=== PATIENT | female | born 1950 | race Caucasian/White ===

== ENCOUNTER → 2018-11-09 | Outpatient (CLI) | payer OTHER | LOC: BC 12:47 | DX: Z12.31 Encounter for screening mammogram for malignant neoplasm of breast (principal) ==

== ENCOUNTER → 2018-11-10 | Outpatient (CLI) | payer OTHER | LOC: CAT 11:35 | DX: Z13.6 Encounter for screening for cardiovascular disorders (principal); E78.00 Pure hypercholesterolemia, unspecified; I25.10 Atherosclerotic heart disease of native coronary artery without angina pectoris ==

== ENCOUNTER → 2019-03-12 | Outpatient (CLI) | payer OTHER | LOC: NUC 09:47 | DX: Z78.0 Asymptomatic menopausal state (principal); Z82.62 Family history of osteoporosis ==

== ENCOUNTER → 2020-02-18 | Outpatient (CLI) | payer OTHER | LOC: BC 10:32 | PROVIDERS: ATTEND Family Medicine | DX: Z12.31 Encounter for screening mammogram for malignant neoplasm of breast (principal) ==

== ENCOUNTER → 2020-04-10 | Outpatient (CLI) | payer OTHER ==
[~2020-04-10] MED LIST: METFORMIN HCL500 M3 PO; NORVASC 2.5 MG2.5 M1 PO; TOPROL XL50 MG; ZOFRAN ODT4 MG PO
== END ==
LOC: LAB 13:15
PROVIDERS: ATTEND Nurse Practitioner
DX: U07.1 COVID-19 (principal)

== ENCOUNTER 2020-04-11 10:46 | Emergency (ER) | payer OTHER ==
[~2020-04-11] VITALS: Ht 162.6 cm; Wt 72.6 kg
[2020-04-11] MEDS ORDERED: TOPROL XL50 MG (13:03)
[2020-04-11] MEDS ORDERED: NORVASC 2.5 MG2.5 M1 PO (13:03)
[2020-04-11 13:33] LABS: CALCIUM 8.5 mg/dL (8.5-10.1); POTASSIUM 4.2 mmol/L (3.5-5.1)
[2020-04-11 13:39] LABS: ALBUMIN 3.2 g/dL (3.4-5.0); TOTAL BILIRUBIN 0.3 mg/dL (0.2-1.0); TOTAL PROTEIN 6.9 g/dL (6.4-8.2)
[2020-04-11 13:44] LABS: ABSOLUTE NEUTROPHILS 3.3 thou/uL (1.4-8.2); BASOPHILS 0.4 % (0.0-2.0); EOSINOPHILS 0.1 % (0.0-3.0); HEMATOCRIT 39.8 % (37.0-47.0); HEMOGLOBIN 13.8 gm/dL (12.0-15.0); LYMPHOCYTES 12.1 % (24.0-44.0); MCH 32.8 pg (26.0-34.0); MCHC 34.6 g/dL (28.0-37.0); MCV 94.9 fL (80.0-100.0); MONOCYTES 4.7 % (1.0-8.0); PLATELET COUNT 147 thou/uL (150-400); POLYS 82.7 % (36.0-66.0); RBC 4.19 mil/uL (4.20-5.00); RDW 12.7 % (10.5-14.5)
[2020-04-11] MEDS ORDERED: METFORMIN HCL500 M3 PO (13:45)
[2020-04-11] MEDS ORDERED: ZOFRAN ODT4 MG PO (14:37)
[2020-04-11 15:00] VITALS: BP 112/60
--- NOTE | 2020-04-14 07:34 | EKG ---
[place] [address] [facility] [place] [address] ELECTROCARDIOGRAM REPORT Name: HARLEY BARRERA Room #: DEP Emely#: [id number] Admission: 04/11/20 Attend Phys: Discharge: 04/11/20 Date of : 48 Report #: [id number] [facility] ED Test Date: 2020-04-11 Test Time: 12:49:39 Pat Name: HARLEY BARRERA Department: Room: Gender: F Collections Specialist: terrance : 1950 Requested By: Pasquale Smart Order Number: [id number] MD: Ravinder Sands Measurements Intervals [place] Rate: 90 P: 40 CO: 163 QRS: 9 QRSD: 79 T: 33 QT: 354 QTc: 433 Interpretive Statements Sinus rhythm Borderline T abnormalities, anterior leads No previous ECG available for comparison Electronically Signed On 04-14-2020 7:34:45 LABORER PRESTRESSED CONCRETE by Ravinder Sands [email or web address] <ELECTRONICALLY SIGNED> By: Ravinder Sands MD, [facility] 04/14/20 0734 1249 1249 Ravinder Sands MD, FACC /EPI
== END 2020-04-11 15:00 | disposition home or self-care (01) ==
LOC: ER 10:46
PROVIDERS: Emergency Medicine
DX: R11.2 Nausea with vomiting, unspecified (principal); R05 Cough; Z79.899 Other long term (current) drug therapy

== ENCOUNTER 2020-04-12 08:02 | Inpatient (IN) | payer OTHER ==
[~2020-04-12] VITALS: Ht 162.6 cm; Wt 74.7 kg
[2020-04-12 08:15] VITALS: BP 134/74
[2020-04-12 09:38] LABS: ABSOLUTE NEUTROPHILS 3.4 thou/uL (1.4-8.2); BASOPHILS 0.3 % (0.0-2.0); HEMOGLOBIN 13.3 gm/dL (12.0-15.0); LYMPHOCYTES 9.3 % (24.0-44.0); MCH 32.7 pg (26.0-34.0); MCHC 34.2 g/dL (28.0-37.0); MCV 95.7 fL (80.0-100.0); MONOCYTES 6.4 % (1.0-8.0); PLATELET COUNT 139 thou/uL (150-400); RBC 4.07 mil/uL (4.20-5.00); RDW 12.6 % (10.5-14.5); WBC 4.1 thou/uL (4.0-11.0)
[2020-04-12 09:41] LABS: ANION GAP 11 mmol/L (7-16); BUN 25 mg/dL (7-18); CALCIUM 8.5 mg/dL (8.5-10.1); CHLORIDE 93 mmol/L (98-107); CO2 25 mmol/L (21-32); CREATININE 1.4 mg/dL (0.6-1.0); GLUCOSE 362 mg/dL (74-106); POTASSIUM 4.1 mmol/L (3.5-5.1); SODIUM 129 mmol/L (136-145)
[2020-04-12 09:50] LABS: SGOT 48 U/L (15-37); SGPT 43 U/L (30-65); TOTAL BILIRUBIN 0.5 mg/dL (0.2-1.0); TOTAL PROTEIN 7.4 g/dL (6.4-8.2); TROPONIN-I <0.06 ng/mL (<0.06)
[2020-04-12 10:45] LABS: URINE BILIRUBIN NEGATIVE (Negative); URINE BLOOD TRACE (Negative); URINE CLARITY CLEAR; URINE COLOR YELLOW; URINE GLUCOSE-RANDOM* 3+ (Negative); URINE KETONES 2+ (Negative); URINE LEUKOCYTES-REFLEX NEGATIVE (Negative); URINE NITRITE-REFLEX NEGATIVE (Negative); URINE PROTEIN (DIPSTICK) 1+ (Negative); URINE SPECIFIC GRAVITY 1.025 (1.005-1.035); URINE UROBILINOGEN 0.2 E.U./dl (0.2-1.0)
[2020-04-12 11:09] LABS: MUCUS 0-3 Light strn/LPF (None Seen); SQUAMOUS 0-3 Few /LPF (0-3)
[2020-04-12 11:10] LABS: BACTERIA-REFLEX None Seen /HPF (None Seen); URINE WBC-REFLEX 0-5 Rare /HPF (0-5)
[2020-04-12 11:11] LABS: URINE RBC 0-2 Rare /HPF (0-2)
[2020-04-12 11:13] LABS: CASTS None Seen /LPF (None Seen); CRYSTALS None Seen /LPF (None Seen); WBC CLUMPS Occasional (None Seen)
[2020-04-12 12:21] VITALS: BP 134/74
[2020-04-12 12:37] VITALS: BP 134/74
[2020-04-12 13:04] VITALS: BP 135/70
[2020-04-12 16:17] VITALS: BP 133/74
--- NOTE | 2020-04-12 18:38 | NUR ---
PT ADMITTED FROM ER ABOUT 1300PM, PT IS A&OX3, PT STILL HAS LOW FEVER AND N/V, PT STARTS IV ABX AND IV FLUID, PT IS ON O2 2L/MIN/NC, PT IS VERY WEAK, RN HAS DONE PT'S ADMITTED ASSESSMENT, PT STARTS EATING DINNER WITHOUT N/V.
[2020-04-12 19:51] VITALS: BP 121/69
[2020-04-13 05:18] VITALS: BP 131/74
[2020-04-13 05:29] LABS: HEMATOCRIT 38.7 % (37.0-47.0); HEMOGLOBIN 13.3 gm/dL (12.0-15.0); MCHC 34.5 g/dL (28.0-37.0); MCV 95.7 fL (80.0-100.0); RBC 4.05 mil/uL (4.20-5.00); RDW 12.7 % (10.5-14.5); WBC 3.3 thou/uL (4.0-11.0)
[2020-04-13 05:35] LABS: CALCIUM 8.1 mg/dL (8.5-10.1); POTASSIUM 4.4 mmol/L (3.5-5.1)
[2020-04-13 07:43] VITALS: BP 130/73
[2020-04-13 16:34] VITALS: BP 132/76
--- NOTE | 2020-04-13 19:28 | NUR ---
RN ASSUMED PT'S CARE AT 0700AM, PT IS A&OX3, PT IS ON O2 2L/MIN/NC, PT'S SOB ,N/V AND WEAKNESS HAVE IMPROVED, PT GETS UP TO CHAIR WITH ASSIST. PT DENIES PAIN AT DAY SHIFT.
[2020-04-13 20:03] VITALS: BP 138/75
[2020-04-14 03:05] LABS: GLYCOHEMOGLOBIN (HGB A1C) 9.6 % (4.8-5.6)
[2020-04-14 03:07] VITALS: BP 152/67
--- NOTE | 2020-04-14 05:16 | NUR ---
Received pt. on 2L/NC with O2 sat in the mid 90's. Max temp 99.9 this shift. She has intermittent chills.First dose of remdesivir given last night. Made aware of some side effects. Pharmacist provided a printed info about remdesivir and given to pt. C/O nausea , zofran given with some relief. Slept some then woke up around 0300 with bowel accident. Assisted to get up to commode and had some more bm. When vital signs taken after assisted back to bed O2 sat in the 80's. Titrated O2 up to 8L with O2 sat of 88%. RT notified. Pt. now on NRB mask with O2 sat in the low 90's. HANSARD REPORTER notified of above change in pt. condition. Pt. stated she feels nervous and anxious. Emotional support given.
[2020-04-14 07:01] LABS: ALBUMIN 2.5 g/dL (3.4-5.0); CREATININE 0.9 mg/dL (0.6-1.0); DIRECT BILIRUBIN < 0.1 mg/dL (<0.1-0.2); SGOT 33 U/L (15-37); SGPT 33 U/L (14-59); TOTAL BILIRUBIN 0.4 mg/dL (0.2-1.0); TOTAL PROTEIN 6.2 g/dL (6.4-8.2)
[2020-04-14 07:34] VITALS: BP 150/64
--- NOTE | 2020-04-14 07:40 | EKG ---
[address] [place] [address] ELECTROCARDIOGRAM REPORT Name: HARLEY BARRERA Room #: 359-P ADM IN M.R.#: [id number] Admission: 04/12/20 Attend Phys: Aram Maharaj MD Discharge: Date of : 48 Report #: [id number] [facility] ED Test Date: 2020-04-12 Test Time: 09:33:51 Pat Name: HARLEY BARRERA Department: Room: 359 Gender: F Bath Tester: KAY : 1950 Requested By: Moises Stein Order Number: [id number] MD: Ravinder Sands Measurements Intervals [place] Rate: 88 P: 39 ID: [id number] QRS: 10 QRSD: 79 T: 31 QT: 362 QTc: 438 Interpretive Statements Sinus rhythm Borderline T abnormalities, anterior leads Compared to ECG 04/11/2020 12:49:39 No significant changes Electronically Signed On 04-14-2020 7:40:33 REGISTRY RN by Ravinder Sands [email or web address] <ELECTRONICALLY SIGNED> By: Ravinder Sands MD, [facility] 04/14/20 0740 0933 2 Ravinder Sands MD, FACC /EPI
[2020-04-14 08:35] LABS: BE(vivo) -4.7 mmol/L (-2 to +3); HCO3 18.3 mmol/L (22.0-26.0); PCO2 28.8 mmHg (35.0-45.0); PO2 117.7 mmHg (80.0-100.0); pH 7.422 (7.360-7.450); sO2 98.4 % (92.0-98.0)
[2020-04-14 10:33] LABS: ABSOLUTE NEUTROPHILS 8.4 thou/uL (1.4-8.2); BASOPHILS 0.1 % (0.0-2.0); HEMATOCRIT 38.1 % (37.0-47.0); LYMPHOCYTES 4.2 % (24.0-44.0); MCH 32.5 pg (26.0-34.0); MCV 95.6 fL (80.0-100.0); PLATELET COUNT 184 thou/uL (150-400); POLYS 93.7 % (36.0-66.0); RBC 3.98 mil/uL (4.20-5.00); WBC 8.9 thou/uL (4.0-11.0)
[2020-04-14 11:44] VITALS: BP 146/75
[2020-04-14 16:18] VITALS: BP 131/77
--- NOTE | 2020-04-14 19:25 | NUR ---
RN ASSUMED PT'S CARE AT 0700AM, PT IS A&OX3, PT NEEDS MORE O2 SINCE PAST SHIFT, RN HAS CALLED HOSPITAL DR TO REPORT PT IN ON HIGH FOLLOW O2 50L/MIN/NC WITH O2 80%, PT HAS SOB WITH ACITIVITIES, NEW ORDER RECEIVED, PULMONARY DR HAS CONSULT, PT IS CONTINUING IV ABX, PT'S O2 KEEP > 92% BY USE HIGH FLOW O2 ,PT IS CONTINING COVID ISOLATION.
[2020-04-14 19:50] VITALS: BP 134/68
[2020-04-15] VITALS (26 sets, daily range): BP systolic 87–191; BP diastolic 49–94
--- NOTE | 2020-04-15 04:42 | NUR ---
Pt. on Optiflow 50L/93% at beginning of shift and maintaining O2 sat in the low 90's. Around 0110 , she started desatting in the mid 80's. RT notified and pt. placed on BIPAP (14/8 rate 10 , 100% FIO2 ). O2 sat up in the low 90's. Pt. is tachypneic and very anxious. DINKEY MECHANIC notified , morphine 2 mg Iv x1 dose given to help with air hunger. Lorazepam 0.5 mg x 1 given later on and it helped some. She requested nausea med to be given prior to remdesivir as it made her sick the day before. No nausea since. Cont. on enhanced precaution, afebrile. Spent some time with pt. to ease anxiety , she verbalized she is very scared. Emotional support given.
--- NOTE | 2020-04-15 10:04 | NUR ---
RN WENT INTO THE ROOM, WAS TOLD IN REPORT THAT PT HAD PROGRESSED FROM 2L/NC TO OPTIFLO TO BIPAP WITHIN THE PAST 36HRS. UPON ENTERING PT WAS AT RR OF 36, RN ATTEMPTED TO PROVIDE THERAPEUTIC COMMUNICATION TO SLOW THE RR DOWN TO 20s RR SETTING ON THE BIPAP AT THE TIME WAS 10. PT WAS OVER BREATHING THE VENT. RN WAS ABLE TO CALM THE PT TO 28RR BUT SOON RN TURNED AWAY PT WOULD BUMP UP TO RR OF 40s. PT COULD NOT TOLERATE BEING OFF THE BIPAP FOR MORE THAN 30SECS. WOULD DESAT DOWN TO 80s WITHIN SECONDS. PT WAS ANXIOUS VERY SCARED OF HER CURRENT PRESENTING CONDITION. RN REASSURED THE PT BUT IT WOULD NOT LAST FOR MORE THAN FEW MINUTES. RN NOTIFIED THE SPECIAL LOAN OFFICER THAT WASN'T JANITORIAL MAINTENANCE WORKER, RN NOTIFIED THE HOSPITALIST WELL THE STEEL BUFFER. HOSPTIALIST BUMPED THE PT STATUS UP TO ICU. REPORT WAS GIVEN. PT NOTIFIED. PT'S PRIMARY CONCERN WAS NOTIFYING THE SON. RN ATTEMPTED TO REACH OUT IN THE NUMBER PROVIDED BUT HAD NO ANSWER. RN REACHED OUT TO ROSENDO, PT'S FRIEND BUT WAS NOT ABLE TO REACH. HOSPITALIST NOTIFIED OF INABILITY TO REACH FAMILY MEMBERS. RN ALSO CALLED THE SPECIAL LOAN OFFICER THAT IS ON AND NOTIFIED THE ANSEWRING SERVICE OF PT'S TRANSFERENCE. ALL BELONGINGS SENT DOWN TO WITH THE PT. RN SIGNING OFF FROM THE PT AT THIS TIME. JUST THE MORNING ASSESSMENTS ARE IN.
--- NOTE | 2020-04-15 10:15 | NUR ---
PATIENT TRANSFERRED TO ICU FROM AT 1035 THIS MORNING, ON THE BIPAP ACCOMPANIED BY CHANCERN AND KAREN RT. VITALS STABLE. DR. REDMAN NOTIFIED OVER THE PHONE THAT PATIENT IN ICU, DR. SHUKLA ON THE UNIT AND WAS AVAILABLE TO INTUBATE PATIENT, THIS INFORMATION COMMUNICATED TO DR. REDMAN AND STATED IT WAS OK FOR DR. SHUKLA TO INTUBATE. INTUBATED BY DR. SHUKLA AT 1050.
--- NOTE | 2020-04-15 10:45 | NUR ---
Pt TRANSFERRED TO ICU AND HAS BEEN INTUBATED. WILL PLACE ON HOLD AND AWAIT NEW ORDERS TO RESUME WHEN APPROPRIATE
[2020-04-15 11:20] LABS: BE(vivo) -1.7 mmol/L (-2 to +3); HCO3 22.6 mmol/L (22.0-26.0); PCO2 37.4 mmHg (35.0-45.0); PO2 73.5 mmHg (80.0-100.0); sO2 94.9 % (92.0-98.0)
--- NOTE | 2020-04-15 11:22 | NUR ---
VAT CONSUTLED FOR A CL. PLEASE SEE INSERTION NI FOR DETAILS, CXR REVEALS THE TIP JUST BELOW THE CAJ AND OK FOR USE
--- NOTE | 2020-04-15 11:43 | NUR ---
INITIAL ASSESSMENT: LISETH reviewed chart and spoke with nursing and attending physician. Pt remains in Enhanced Isolation due to COVID. Pt was transferred to ICU and intubated this morning. LISETH left voice message for pt's son, José Miguel ([phone]) to request call back. LISETH spoke with pt's listed contact, Cynthia, to provide update and notify of new room number and contact info for nurses station. Cynthia states she will also try to contact pt's son. He does work nights. Pt is normally alert/orientated x 4 and lives at home alone. Prior to admission, pt was independent with ADLs. No use of DME. Pt's PCP noted to be Dr. Anjelica Lux. LISETH is following to assist as needed with discharge planning.
--- NOTE | 2020-04-15 12:11 | NUR ---
PT'S SON CHANCE CALLED IN TO CHECK ON PT. DID NOT HAVE 4 DIGIT CODE FOR INFORMATION, IS NOT LISTED AUTH CONTACT OR REP. CALLED & BILLIE HOPSON, CASE MANAGEMENT. SHE HAD BEEN TRYING TO REACH HIM. EXPLAINED TO HIM CM WOULD CALL HIM.--VW
--- NOTE | 2020-04-15 18:28 | NUR ---
FRIEND BRUCE LISTED POINT OF CONTACT INITIALLY WHEN PATIENT WAS TRANSFERRED TO ICU, RN TRIED TO REACH HER TWICE BUT UNSUCCESSFUL. PATIENT'S SON, CHANCE CALLED TRYING TO GET INFORMATION, I INFORMED HIM THAT HE'S NOT LISTED POINT OF CONTACT AND WOULD UPDATE BRUCE ONCE ABLE TO REACH HER. BRUCE THEN CALLED BACK SHORTLY AFTER THAT AND STATED THAT THE PERSON TO CONTACT COULD BE CHANGED TO PATIENT'S SON SINCE HE'S A RELATIVE. I UPDATED THIS INFORMATION IN THE SYSTEM AND TRIED TO CALL SON CHANCE BACK TO UPDATE HIM AND GIVE HIM THE PRIVACY CODE BUT PHONE WENT TO VOICEMAIL, I LEFT A MESSAGE FOR HIM TO CALL ME BACK. DID NOT RECEIVE A CALL BACK AND TRIED AGAIN TO CALL HIM THIS EVENING AT 1830 BUT WENT TO VOICEMAIL.
[2020-04-16] VITALS (32 sets, daily range): BP systolic 111–147; BP diastolic 53–76
--- NOTE | 2020-04-16 01:32 | NUR ---
Patient proned at 0100 this morning. Tolerated well. Will continue to monitor.
[2020-04-16 05:20] LABS: ABSOLUTE NEUTROPHILS 5.2 thou/uL (1.4-8.2); HEMATOCRIT 31.8 % (37.0-47.0); LYMPHOCYTES 4.8 % (24.0-44.0); MCH 33.1 pg (26.0-34.0); MCHC 34.7 g/dL (28.0-37.0); MCV 95.6 fL (80.0-100.0); MONOCYTES 4.7 % (1.0-8.0); PLATELET COUNT 202 thou/uL (150-400); POLYS 90.5 % (36.0-66.0); RBC 3.33 mil/uL (4.20-5.00); RDW 12.7 % (10.5-14.5); WBC 5.7 thou/uL (4.0-11.0)
[2020-04-16 05:32] LABS: D-DIMER 1.39 ug/mLFEU (0.19-0.50); INR 1.1; PROTIME 10.9 Seconds (9.3-11.4)
[2020-04-16 05:37] LABS: FIBRINOGEN 436.9 mg/dL (210-360)
[2020-04-16 05:45] LABS: ALBUMIN 1.8 g/dL (3.4-5.0); CREATININE 0.7 mg/dL (0.6-1.0); POTASSIUM 3.4 mmol/L (3.5-5.1); TOTAL BILIRUBIN 0.3 mg/dL (0.2-1.0); TOTAL PROTEIN 5.1 g/dL (6.4-8.2)
[2020-04-16 05:56] LABS: DIRECT BILIRUBIN < 0.1 mg/dL (<0.1-0.2); PHOSPHORUS 2.6 mg/dL (2.5-4.9)
--- NOTE | 2020-04-16 10:12 | NUR ---
Nutrition: NPO day 2 on vent. Noted plan to prone 8-12 hrs so bolus regimen suggested if pt tolerates. REC 3 cartons Vital HP in 24 hrs plus 250 mL h20 flush q 6 hrs with beneprotein powder added.
--- NOTE | 2020-04-16 15:32 | NUR ---
LISETH reviewed chart and spoke with nursing. Pt remains intubated in ICU. Pt in Enhanced Isolation due to COVID. Pt is afebrile and on IV abx/IV steroids. Pt having convalescent plasma today. Attending physician spoke with pt's son to provide update. SW is following to assist as needed with discharge planning.
--- NOTE | 2020-04-16 16:36 | NUR ---
ASSUMED CARE OF PT AT 0700. PT PRONED UNTIL 1400. SPOKE TO PT'S SON AT 0900 AND UPDATED PER POC AND GAVE HIM THE CODE. DR. REDMAN AT BEDSIDE AT 1245, HE ORDERED A DIETARY CONSULT FOR TUBE FEED
[2020-04-17] VITALS (27 sets, daily range): BP systolic 113–150; BP diastolic 57–75
[2020-04-17 06:15] LABS: HEMATOCRIT 30.5 % (37.0-47.0); HEMOGLOBIN 10.3 gm/dL (12.0-15.0); MCH 32.9 pg (26.0-34.0); MCHC 33.8 g/dL (28.0-37.0); MCV 97.3 fL (80.0-100.0); RBC 3.14 mil/uL (4.20-5.00); RDW 13.2 % (10.5-14.5); WBC 6.4 thou/uL (4.0-11.0)
[2020-04-17 06:29] LABS: ALBUMIN 1.8 g/dL (3.4-5.0); ANION GAP 12 mmol/L (7-16); BUN 15 mg/dL (7-18); CALCIUM 7.9 mg/dL (8.5-10.1); CHLORIDE 107 mmol/L (98-107); CO2 25 mmol/L (21-32); CREATININE 0.6 mg/dL (0.6-1.0); DIRECT BILIRUBIN < 0.1 mg/dL (<0.1-0.2); GLUCOSE 268 mg/dL (74-106); PHOSPHORUS 2.1 mg/dL (2.6-4.7); POTASSIUM 3.5 mmol/L (3.5-5.1); SGOT 33 U/L (15-37); SGPT 27 U/L (14-59); SODIUM 144 mmol/L (136-145); TOTAL BILIRUBIN 0.4 mg/dL (0.2-1.0); TOTAL PROTEIN 5.1 g/dL (6.4-8.2)
[2020-04-18] VITALS (29 sets, daily range): BP systolic 114–142; BP diastolic 51–71
[2020-04-18 04:44] LABS: BE(vivo) -0.7 mmol/L (-2 to +3); HCO3 23.8 mmol/L (22.0-26.0); PO2 61.5 mmHg (80.0-100.0); pH 7.404 (7.360-7.450); sO2 91.8 % (92.0-98.0)
[2020-04-18 05:35] LABS: HEMATOCRIT 33.9 % (37.0-47.0); HEMOGLOBIN 11.7 gm/dL (12.0-15.0); MCH 33.4 pg (26.0-34.0); MCHC 34.4 g/dL (28.0-37.0); MCV 97.1 fL (80.0-100.0); RBC 3.49 mil/uL (4.20-5.00); RDW 13.3 % (10.5-14.5); WBC 7.5 thou/uL (4.0-11.0)
[2020-04-18 05:51] LABS: CALCIUM 8.4 mg/dL (8.5-10.1); CREATININE 0.5 mg/dL (0.6-1.0); POTASSIUM 3.6 mmol/L (3.5-5.1)
--- NOTE | 2020-04-18 06:35 | NUR ---
PT TOLERATING PRONING WELL, SUPINATED AT 0300 WITHOUT INCIDENT, SATS DROPPED TO 81%, SLOWLY INCREASING TO 94%, CURRENTLY MAINTAINING AROUND 90% ON FI02 70%. SEVERE SCLEREDEMA, BP STABLE, HR 50-70'S.
--- NOTE | 2020-04-18 08:15 | NUR ---
close friend Denisse present. the ring cut off from pt's finger, another ring, a pair of earrings and purse were sent home with Denisse. son is unable to visit related to covid precautions so she is going to take the items to him.
--- NOTE | 2020-04-18 13:00 | NUR ---
placed in prone positioning with Jacobo, RT and 3 rn assist. Well tolerated. during process pt had projectile diarrhea stool, flexiseal placed. well tolerated.
--- NOTE | 2020-04-18 14:36 | NUR ---
chart review. cont vent support and nutritional support. no anticpated dc through weekend. cm visited with son julia, no concerns or needs voiced " just keed doing what you all are doing"/son julia. will cont following as needed for dc needs.
[2020-04-19] VITALS (43 sets, daily range): BP systolic 108–166; BP diastolic 55–82
[2020-04-19 04:59] LABS: HEMATOCRIT 31.9 % (37.0-47.0); HEMOGLOBIN 11.2 gm/dL (12.0-15.0); MCH 33.9 pg (26.0-34.0); MCV 96.8 fL (80.0-100.0); RBC 3.3 mil/uL (4.20-5.00); RDW 13.2 % (10.5-14.5); WBC 8.8 thou/uL (4.0-11.0)
[2020-04-19 05:33] LABS: ALBUMIN 1.8 g/dL (3.4-5.0); CREATININE 0.5 mg/dL (0.6-1.0); DIRECT BILIRUBIN 0.2 mg/dL (<0.1-0.2); PHOSPHORUS 3.2 mg/dL (2.5-4.9); POTASSIUM 4.1 mmol/L (3.5-5.1); TOTAL BILIRUBIN 0.4 mg/dL (0.2-1.0); TOTAL PROTEIN 4.6 g/dL (6.4-8.2)
--- NOTE | 2020-04-19 13:10 | NUR ---
previously placed OG to low wall suction. obtained about 200cc tube feeding mixed with bile. ETT retaped by RT, then pt placed in prone positioning with RT and 4 RN assist. well tolerated.
--- NOTE | 2020-04-19 19:58 | NUR ---
HR INCREASED TO 140, REGULAR IN RHYTHM, P WAVES ARE NOTED. UNABLE TO GET EKG AT THIS TIME DUE TO PT BEING PRONED. CALL TO LUCIA YUN TO UPDATE, REQUEST FOR IV METOPROLOL. PT DID RECIEVE SCHEDULED DOSE OF METOPROLOL THIS AM, BUT HAD NOT BEEN RECIEVING PREVIOUS 3 DOSES DUE TO LOW HR.
[2020-04-20] VITALS (37 sets, daily range): BP systolic 118–147; BP diastolic 56–76
--- NOTE | 2020-04-20 08:00 | NUR ---
BRUCE, CLOSE FRIEND PRESENT. UPDATED ON PT STATUS INCLUDING FIO2 ON VENT, CONTINUED SEDATION.
[2020-04-20 08:26] LABS: D-DIMER 1.74 ug/mLFEU (0.19-0.50); FIBRINOGEN 381.4 mg/dL (210-360)
[2020-04-20 10:09] LABS: CREATININE 0.5 mg/dL (0.6-1.0)
[2020-04-20 10:10] LABS: DIRECT BILIRUBIN 0.1 mg/dL (<0.1-0.2); POTASSIUM 4.5 mmol/L (3.5-5.1); TOTAL BILIRUBIN 0.4 mg/dL (0.2-1.0)
[2020-04-20 10:11] LABS: ALBUMIN 1.7 g/dL (3.4-5.0); CALCIUM 8.2 mg/dL (8.5-10.1); TOTAL PROTEIN 5.4 g/dL (6.4-8.2)
[2020-04-20 10:53] LABS: HEMATOCRIT 33.7 % (37.0-47.0); HEMOGLOBIN 11.3 gm/dL (12.0-15.0); MCHC 33.6 g/dL (28.0-37.0); MCV 98.3 fL (80.0-100.0); RBC 3.43 mil/uL (4.20-5.00); RDW 13.4 % (10.5-14.5); WBC 10.6 thou/uL (4.0-11.0)
[2020-04-21] VITALS (23 sets, daily range): BP systolic 120–163; BP diastolic 57–80
[2020-04-21 04:25] LABS: HEMATOCRIT 31.1 % (37.0-47.0); HEMOGLOBIN 10.5 gm/dL (12.0-15.0); MCHC 33.6 g/dL (28.0-37.0); MCV 98.1 fL (80.0-100.0); RBC 3.17 mil/uL (4.20-5.00); RDW 13.3 % (10.5-14.5)
[2020-04-21 04:41] LABS: ALBUMIN 1.6 g/dL (3.4-5.0); CALCIUM 8.4 mg/dL (8.5-10.1); CREATININE 0.7 mg/dL (0.6-1.0); DIRECT BILIRUBIN 0.1 mg/dL (<0.1-0.2); PHOSPHORUS 3.9 mg/dL (2.5-4.9); POTASSIUM 4.7 mmol/L (3.5-5.1); TOTAL BILIRUBIN 0.3 mg/dL (0.2-1.0); TOTAL PROTEIN 5.1 g/dL (6.4-8.2)
--- NOTE | 2020-04-21 16:51 | NUR ---
PATIENT PRONED AT 1530. NO SIGNIFICANT OR ACUTE CHANGES TODAY.
[2020-04-22] VITALS (22 sets, daily range): BP systolic 120–178; BP diastolic 59–88
[2020-04-22 04:17] LABS: BE(vivo) 5.5 mmol/L (-2 to +3); HCO3 30.2 mmol/L (22.0-26.0); PCO2 44.7 mmHg (35.0-45.0); PO2 146.5 mmHg (80.0-100.0); pH 7.448 (7.360-7.450)
[2020-04-22 05:43] LABS: HEMATOCRIT 32.7 % (37.0-47.0); HEMOGLOBIN 11.2 gm/dL (12.0-15.0); MCHC 34.2 g/dL (28.0-37.0); MCV 96.5 fL (80.0-100.0); PLATELET COUNT 267 thou/uL (150-400); RBC 3.38 mil/uL (4.20-5.00); RDW 13.1 % (10.5-14.5); WBC 8.3 thou/uL (4.0-11.0)
[2020-04-22 06:29] LABS: ALBUMIN 1.7 g/dL (3.4-5.0); CALCIUM 8.8 mg/dL (8.5-10.1); CREATININE 0.6 mg/dL (0.6-1.0); DIRECT BILIRUBIN 0.1 mg/dL (<0.1-0.2); PHOSPHORUS 3.9 mg/dL (2.5-4.9); POTASSIUM 4.5 mmol/L (3.5-5.1); TOTAL BILIRUBIN 0.4 mg/dL (0.2-1.0); TOTAL PROTEIN 5.4 g/dL (6.4-8.2)
[2020-04-22 13:17] LABS: METAMYELOCYTES 3 %
[2020-04-22 13:18] LABS: ABSOLUTE NEUTROPHILS 7.5 thou/uL (1.4-8.2); ANISOCYTOSIS SLIGHT
--- NOTE | 2020-04-22 17:03 | NUR ---
chart review. she cont to remain on vent, nutritional support. bedside staff cont to provide updates to son julia. will cont following as needed for dc needs.
--- NOTE | 2020-04-22 19:54 | NUR ---
PT PRONED 1200 TODAY. PEEP DECREASED TO 10. REMAINS ON PROPOFAL,FENTANYL,VERSED GTTS. ADEQUATE URINE OUTPUTE. TMAX 99.2. FMS REAMINS IN PLACE. TOLARATED PRONE POSITION WELL.
[2020-04-23] VITALS (57 sets, daily range): BP systolic 82–163; BP diastolic 51–98
[2020-04-23 03:31] LABS: BE(vivo) 4.9 mmol/L (-2 to +3); HCO3 28.7 mmol/L (22.0-26.0); PCO2 39.5 mmHg (35.0-45.0); PO2 94.5 mmHg (80.0-100.0); pH 7.479 (7.360-7.450); sO2 97.6 % (92.0-98.0)
--- NOTE | 2020-04-23 04:57 | NUR ---
PT TURNED TO SUPINE POSITION APPROXIMATELY 0000, TOLERATED VERY WELL, SATS REMAINED ABLOVE 95%, CURRENTLY SATS 98% ON FI02 60%. SLIGHT BP DROP AFTER SUPINE, RECOVERED WELL. CAUTIOUSLY PROGRESSING TOWARD GOALS AT THIS TIME
[2020-04-23 05:11] LABS: HEMATOCRIT 33.2 % (37.0-47.0); HEMOGLOBIN 11.2 gm/dL (12.0-15.0); MCH 32.8 pg (26.0-34.0); MCHC 33.7 g/dL (28.0-37.0); MCV 97.2 fL (80.0-100.0); PLATELET COUNT 244 thou/uL (150-400); RBC 3.41 mil/uL (4.20-5.00); RDW 13.2 % (10.5-14.5); WBC 11.4 thou/uL (4.0-11.0)
[2020-04-23 05:21] LABS: ALBUMIN 1.7 g/dL (3.4-5.0); CALCIUM 8.9 mg/dL (8.5-10.1); CREATININE 0.6 mg/dL (0.6-1.0); POTASSIUM 3.7 mmol/L (3.5-5.1); TOTAL BILIRUBIN 0.4 mg/dL (0.2-1.0); TOTAL PROTEIN 5.1 g/dL (6.4-8.2)
[2020-04-23 08:55] LABS: ABSOLUTE NEUTROPHILS 10.3 thou/uL (1.4-8.2); PLATELET ESTIMATE NORMAL
--- NOTE | 2020-04-23 19:25 | NUR ---
assumed care 0700. pt proned 1500. tolerated well. adequate output throughout day. fms remains in place. tmax 99.2. continues to progressive in plan of care.
[2020-04-24] VITALS (34 sets, daily range): BP systolic 97–157; BP diastolic 56–81
--- NOTE | 2020-04-24 03:24 | NUR ---
SUPINED AT 0330, TOLERATED WELL, NO RESIDUALS, TF AND H20 GIVEN, LUNGS SOUND CLEAR/DIM, CURRENTLY TOLERATING FI02 40% WITH SAT OF 93%. CAUTIOUSLY PROGRESSING TOWARD GOALS
[2020-04-24 10:10] LABS: BE(vivo) 5.5 mmol/L (-2 to +3); PCO2 38.7 mmHg (35.0-45.0); pH 7.493 (7.360-7.450); sO2 90.9 % (92.0-98.0)
[2020-04-24 10:11] LABS: PO2 54.7 mmHg (80.0-100.0)
--- NOTE | 2020-04-24 10:31 | NUR ---
PT TOLERATED VENT WEANING FAIRLY WELL W/ CPAP 6/5, FIO2 45%. FROM [phone]. ABG WITH CL PO2 OF 54.7, WHICH WAS CALLED TO DR. SILVA WITH NO NEW ORDERS. PT PLACED BACK ON PREVIOUS VENT SETTINGS. PT REMAINS SEDATED EVEN WITH DECREASED PROPOFOL AND STOPPING VERSED. WILL CONTINUE MONITOR AND ADJUST DRIPS FOR VENTILATOR TOLERANCE.
--- NOTE | 2020-04-24 14:40 | NUR ---
Note Given: Y Facility List Provided:Y Wiliam Hinds: None at this time
--- NOTE | 2020-04-24 17:52 | NUR ---
CPAP TRIAL TODAY X 1 HOUR. PT HYPOXIC, BUT OTHERWISE TOLERATED WITHOUT SIGNIFICANT VS CHANGE. PRONATED AT 1200. URINE OUTPUT ADEQUATE. TOLERATED BOLUS FEEDINGS THIS MORNING. FEEDINGS ON HOLD DURING PRONATION. PT PROGRESSING TOWARD GOALS.
[2020-04-25] VITALS (36 sets, daily range): BP systolic 87–150; BP diastolic 53–82
--- NOTE | 2020-04-25 04:37 | NUR ---
PT SUPINATED AT 0100, TOLERATED WELL, SATS CONTINUE TO BE >96%. SQUEEZES EYES SHUT WITH ORAL CARES AND APPEARS TO ATTEMPT TO OPEN EYES DURING NURSING CARES. DOES NOT RESPOND TO VOICE OR COMMAND WHILE ON SEDATION. TOELRATING TURNS WELL, CAUTIOUSLY PROGRESSING TOWARD GOALS.
[2020-04-25 09:21] LABS: BE(vivo) 5.4 mmol/L (-2 to +3); HCO3 28.7 mmol/L (22.0-26.0); PCO2 37.7 mmHg (35.0-45.0); sO2 93.9 % (92.0-98.0)
--- NOTE | 2020-04-25 12:40 | NUR ---
CPAP TRIAL FROM [phone]. PATIENT TOLERATED WELL. PER DR. SILVA, NO EXTUBATION TODAY AND CONTINUE WITH PRONING TODAY. RR 10-25 HR 80-100 OXYGEN SATURATION 95-97% PATIENT NOT FOLLOW COMMANDS, PATIENT HAS STRONG GAG AND COUGH, OPENES EYES.
--- NOTE | 2020-04-25 12:49 | NUR ---
1240- PATIENT SWITCHED TO PRONE STATUS. Sedation was increased as patient eyes were open, she was gagging and coughing strongly with grimacing. She is more relaxed at this time with cpot <5.
--- NOTE | 2020-04-25 13:02 | NUR ---
ON-GOING ASSESSMENT: CM REVIEWED CHART. PT REMAINS ON THE VENT, FIO2 30 PERCENT. PT CHANGED TO PRONE STATUS. PT REMAINS AFEBRILE AND ON IV CORTICOSTEROIDS. CM WILL CONTINUE TO FOLLOW TO ASSIST NEEDED.
--- NOTE | 2020-04-25 20:00 | NUR ---
Patient progressing towards plan of care as evidenced by cpap trials running longer and patient tolerating. She does not follow commands, however, sedation was increased secondary to her gag and cough and need for proning per MD order. Plan of care is to continue to cpap trial tomorrow, monitor need for sedation, and monitor vital signs.
[2020-04-26] VITALS (29 sets, daily range): BP systolic 100–159; BP diastolic 48–80
--- NOTE | 2020-04-26 14:32 | NUR ---
PATIENT PRONED AT 13:10 AND CPAP TRAIL STARTED AT 13:15 6/5 .30 FIO2. TOLERATING WELL. SEDATION AT VERSED 6MG/HR AND FENTANYL 75MCG/HR. TEMP 99.7
[2020-04-27] VITALS (28 sets, daily range): BP systolic 108–163; BP diastolic 59–87
[2020-04-27 04:33] LABS: ABSOLUTE NEUTROPHILS 12.1 thou/uL (1.4-8.2); BASOPHILS 0.3 % (0.0-2.0); EOSINOPHILS 0.1 % (0.0-3.0); HEMOGLOBIN 10.5 gm/dL (12.0-15.0); LYMPHOCYTES 7.1 % (24.0-44.0); MCH 32.4 pg (26.0-34.0); MCHC 33.7 g/dL (28.0-37.0); MCV 96.1 fL (80.0-100.0); MONOCYTES 5.2 % (1.0-8.0); PLATELET COUNT 245 thou/uL (150-400); POLYS 87.3 % (36.0-66.0); RBC 3.23 mil/uL (4.20-5.00); RDW 12.9 % (10.5-14.5); WBC 13.9 thou/uL (4.0-11.0)
[2020-04-27 04:54] LABS: ALBUMIN 1.9 g/dL (3.4-5.0); CALCIUM 8.5 mg/dL (8.5-10.1); CREATININE 0.7 mg/dL (0.6-1.0); POTASSIUM 4.1 mmol/L (3.5-5.1); TOTAL BILIRUBIN 0.5 mg/dL (0.2-1.0); TOTAL PROTEIN 5.3 g/dL (6.4-8.2)
[2020-04-27 13:41] LABS: URINE BILIRUBIN NEGATIVE (Negative); URINE BLOOD NEGATIVE (Negative); URINE CLARITY CLEAR; URINE COLOR YELLOW; URINE GLUCOSE-RANDOM* NEGATIVE (Negative); URINE KETONES NEGATIVE (Negative); URINE LEUKOCYTES-REFLEX TRACE (Negative); URINE NITRITE-REFLEX NEGATIVE (Negative); URINE PROTEIN (DIPSTICK) NEGATIVE (Negative); URINE SPECIFIC GRAVITY 1.015 (1.005-1.035); URINE UROBILINOGEN 0.2 E.U./dl (0.2-1.0)
--- NOTE | 2020-04-27 17:03 | NUR ---
PATIENT STABLE THROUGH OUT SHIFT. CPAPING ON VENT WITH GOOD TOLERATION. NO FLUCUATION IN VITAL SIGNS. ADEQUATE URINE OUTPUT. ON VERSED AND FENTANYL GTTS FOR VENT MANAGEMENT. PATIENT WITH +COUGH/GAG. FLUTTERING EYES, NO MOVEMENT TO EXTREMITIES. INCREASED VERSED PRIOR TO PRONING. PATIENT PRONED AT 1400, TOLERATING WELL. PROGRESSING.
--- NOTE | 2020-04-27 18:42 | NUR ---
lujan port on central line not flushing, attempted to use cathflo with unsuccessful results, patient is proned and may be in correlation to position.
[2020-04-28] VITALS (34 sets, daily range): BP systolic 80–196; BP diastolic 42–99
--- NOTE | 2020-04-28 01:46 | NUR ---
Patient supined at 0100 this morning. Tolerated well. Will continue to monitor.
--- NOTE | 2020-04-28 06:43 | NUR ---
Patient progressing towards goals. Supined at 0100. Weaning sedation down. Remains on CPAP and tolerating well. Continue to wean down.
[2020-04-28 08:07] LABS: BE(vivo) 0.9 mmol/L (-2 to +3); HCO3 23.6 mmol/L (22.0-26.0); PCO2 31.5 mmHg (35.0-45.0); PO2 84.2 mmHg (80.0-100.0); pH 7.492 (7.360-7.450); sO2 97.1 % (92.0-98.0)
--- NOTE | 2020-04-28 11:23 | NUR ---
chart review. cont on vent, proning, and nutritional support. bedside staff cont to update son julia. will cont following as needed for dc needs.
--- NOTE | 2020-04-28 19:34 | NUR ---
ASSUMED CARE OF PT 0700. PT MORE AWAKE THROUGHOUT SHIFT. OFF SEDATION BY END OF SHIFT. STILL NOT ABLE TO FOLLOW COMMANDS. BP HYPERTENSIVE AT TIMES. CONTROLLED WELL BY Q6 METOPROLOL. LARGE BM TODAY. ADEQUATE OUTPUT. TMAX 99.2 CONTINUES TO PROGRESS IN NURSING PLAN OF CARE
[2020-04-29] VITALS (35 sets, daily range): BP systolic 81–132; BP diastolic 46–90
--- NOTE | 2020-04-29 01:48 | NUR ---
After patient was proned, she vomited a small to moderate amount of emesis. Pt started to desat in the mid 80s. Pt was then turned to her back and suctioned. sats in the 100s upon returning to supine position.
[2020-04-29 05:06] LABS: BE(vivo) 0.4 mmol/L (-2 to +3); HCO3 23.4 mmol/L (22.0-26.0); PCO2 32.6 mmHg (35.0-45.0); PO2 389.1 mmHg (80.0-100.0); pH 7.473 (7.360-7.450); sO2 99.8 % (92.0-98.0)
[2020-04-29 05:55] LABS: ABSOLUTE NEUTROPHILS 11.2 thou/uL (1.4-8.2); BASOPHILS 0.2 % (0.0-2.0); EOSINOPHILS 0.4 % (0.0-3.0); HEMOGLOBIN 11.6 gm/dL (12.0-15.0); LYMPHOCYTES 10.1 % (24.0-44.0); MCH 32.2 pg (26.0-34.0); MCHC 33.1 g/dL (28.0-37.0); MCV 97.3 fL (80.0-100.0); MONOCYTES 5.2 % (1.0-8.0); PLATELET COUNT 270 thou/uL (150-400); POLYS 84.1 % (36.0-66.0); WBC 13.4 thou/uL (4.0-11.0)
[2020-04-29 06:20] LABS: ALBUMIN 2.2 g/dL (3.4-5.0); CALCIUM 9.3 mg/dL (8.5-10.1); CREATININE 0.5 mg/dL (0.6-1.0); POTASSIUM 3.9 mmol/L (3.5-5.1); TOTAL BILIRUBIN 0.8 mg/dL (0.2-1.0); TOTAL PROTEIN 5.9 g/dL (6.4-8.2)
--- NOTE | 2020-04-29 18:13 | NUR ---
PATIENT REMAINS ON CPAP MODE THROUGH OUT THE DAY. TOLERATING WELL WITH NO FLUCATIONS IN VITAL SIGNS. MINIMAL SEDATION, FENTANYL GTT TUNRED OFF. REMAINS ON PRECEDEX. PATIENT WITH EYES OPEN IN ROOM, WILL REACT TO ANY STIMULI BUT DOES NOT FOLLOW ANY COMMANDS. EYES GAZING BUT DOES NOT TRACK, DR. SILVA AWARE. PATIENT TO BE PLACED BACK ON AC MODE ON VENT TO REST THROUGH THE NIGHT. NO VERBAL OKAY GIVEN BY DR SILVA TO PRONE THIS SHIFT AFTER EPISODE OF VOMITING LAST NIGHT.
[2020-04-30] VITALS (41 sets, daily range): BP systolic 89–133; BP diastolic 51–73
--- NOTE | 2020-04-30 05:29 | NUR ---
A APPROX 2350 THIS RN CONTACTED DOG LICENSER REGARDING PT LOW BP AND UO. I TOLD DOG LICENSER THAT HER MAPS WERE ABOUT 60-65. AFTER TITRATING DOWN HER PRECEDEX SHE WAS STILL HYPOTENSIVE AND NOW MORE ALERT. THE PTS UO HAD ALSO TAPERED OF OVER THE PREVIOUS 3 HRS. THE PT WAS COUGHING AND GRIMACING MORE. WHEN RT SUCTIONED THE PT SHE COUGHED, GAGGED AND VOMITTED EMESIS. I GAVE PRN MED FOR NAUSEA. I REQUESTED THAT WE STARTED THE PT ON A FENTYNAL DRIP TO IMPROVE HYPOTENSION AND SEDATION LEVEL. DOG LICENSER SAID THAT IT WAS OKAY TO START FENTYAL. SEE EMAR FOR DETAILS.
[2020-04-30 06:10] LABS: HEMATOCRIT 33.3 % (37.0-47.0); HEMOGLOBIN 11.2 gm/dL (12.0-15.0); MCH 32.8 pg (26.0-34.0); MCHC 33.8 g/dL (28.0-37.0); MCV 97.1 fL (80.0-100.0); RBC 3.43 mil/uL (4.20-5.00); RDW 13.2 % (10.5-14.5); WBC 13.1 thou/uL (4.0-11.0)
[2020-04-30 06:31] LABS: ALBUMIN 2.1 g/dL (3.4-5.0); CALCIUM 9.1 mg/dL (8.5-10.1); CREATININE 0.6 mg/dL (0.6-1.0); POTASSIUM 3.2 mmol/L (3.5-5.1); TOTAL BILIRUBIN 0.5 mg/dL (0.2-1.0); TOTAL PROTEIN 5.8 g/dL (6.4-8.2)
--- NOTE | 2020-04-30 15:09 | NUR ---
CM review of case and notes continuation of vent as intubated on 04-15-20 for COVID 19 pneumonia and Sepsis. Continued support including IV steroids and full ICU support. Alfred Valdez remains contact at [phone]. CM will continue to follow for discharge needs as medical plan of care continues.
--- NOTE | 2020-04-30 15:51 | NUR ---
PT IS PROGRESSING TOWARDS DISCHARGE AT THIS TIME. PT SEEN TDOAY BY /. THE GOAL AT THIS TIME IS TO HAVE THE PT EXTUBATED, PT IS ABLE TO TOLERATE CPAP AND PT IS AT A LOW SETTING ON THE VENTILATOR WELL. THE BARRIER AT THIS TIME PER IN EXTUBATION IS PT'S OWN ABILITY TO MANAGE THEIR AIRWAY. PT IS ABLE TO ANSWER YES AND NO QUESTIONS/TRACKS WITH EYES BUT PT IS UNABLE TO MOVE HER EXTREMETIES, AFTER PROLONGED VENTILATION. PT IS ABLE TO BETTER MOBILIZE THEIR EXTREMETIES PT WILL BE MORE LIKELY TO BE EXTUBATED. CURRENT GOAL IN TREATMENT IS TO HAVE THE PT TOLERATE VENT AT THE LOWEST SEDATION (PT WAS SEEN GAGGING ON THE ET TUBE W/ INSUFFICIENT SEDATION), WELL FOCUSING ON HAVING THE PT MOBILIZE THEIR EXTREMETIES MORE. RN WILL CONTINUE TO MONITOR, PRONING IS CONTINUED UNTIL FURTHER INSTRUCTION FROM [employer].
[2020-05-01] VITALS (38 sets, daily range): BP systolic 104–202; BP diastolic 52–113
[2020-05-01 05:03] LABS: HEMATOCRIT 31.3 % (37.0-47.0); HEMOGLOBIN 10.6 gm/dL (12.0-15.0); MCH 32.8 pg (26.0-34.0); MCHC 33.9 g/dL (28.0-37.0); MCV 96.8 fL (80.0-100.0); RBC 3.23 mil/uL (4.20-5.00); WBC 10.3 thou/uL (4.0-11.0)
[2020-05-01 05:04] LABS: ALBUMIN 2.1 g/dL (3.4-5.0); CALCIUM 8.7 mg/dL (8.5-10.1); CREATININE 0.4 mg/dL (0.6-1.0); MAGNESIUM 1.8 mg/dL (1.8-2.4); POTASSIUM 3.9 mmol/L (3.5-5.1); TOTAL BILIRUBIN 0.5 mg/dL (0.2-1.0); TOTAL PROTEIN 5.8 g/dL (6.4-8.2)
--- NOTE | 2020-05-01 05:27 | NUR ---
PT SUPINATED APPROXIMATELY 0145, TOLERATED VERY WELL, SATS 99% ON FI02 30%. DROWSY ON PRECEDEX, OPENS EYES AND TRACKS STAFF, NODS YES TO QUESTIONS, ABLE TO WIGGLE TOES, BUT CANNOT MOVE HANDS/ARMS. PASSIVE RANGE OF MOTION CONDUCTED ON ALL 4 EXTREMITIES. PRECEDEX WEANED TOLERATED AFTER PT SUPINE. CPAP TRIAL STARTED 0200. DENIES PAIN.
[2020-05-01 09:37] LABS: BE(vivo) -0.3 mmol/L (-2 to +3); HCO3 22.9 mmol/L (22.0-26.0); PCO2 32.5 mmHg (35.0-45.0); PO2 94.8 mmHg (80.0-100.0); pH 7.466 (7.360-7.450); sO2 97.7 % (92.0-98.0)
[2020-05-02] VITALS (32 sets, daily range): BP systolic 132–173; BP diastolic 63–83
--- NOTE | 2020-05-02 04:48 | NUR ---
INTERACTS WITH STAFF VIA YES/NO QUESTIONS. PT AFFECT IS FLAT, APPEARS SAD OR DEPRESSED, FRUSTRATED AT TIMES WITH REQUESTS OR AFTER ATTEMPTING TO DO SOMETHING. PT ATTEMPTED IS, BUT WAS UNABLE TO COMPLETE AT THIS TIME, TURNED HEAD QUICKLY AWAY FROM RN AFTER ATTEMPTING TWICE. RESTING SPORATICALLY, AWAKE MOST OF NIGHT. COMPLAINTS OF PAIN WHILE PRONED, BUT DENIED PAIN AFTER SUPINE. HR ELEVATED TO 130'S WHEN PRONED, BP 180'S.
--- NOTE | 2020-05-02 10:28 | NUR ---
chart review. noted possible will be able to be extubated. noted awake, nodding to yes and no question. proning. cpap trails. will cont following as needed for dc needs. bedside nurse providing updates to lisa dumont.
--- NOTE | 2020-05-02 10:48 | NUR ---
ALERT AND AWAKE, DOESN'T FOLLOW COMMANDS CONSISTENTLY. SMILES AND TRACKS AROUND THE ROOM. VITALS STABLE. PT/OT/ST ORDERED AND ARE FOLLOWING UP. ON BIPAP AT HS AND ROOM AIR NOW. TALKED TO DR. VAZQUEZ CLARK: PATIENT'S NEURO INCONSISTENCY AND HE STATED TO GIVE TIME FOR SEDATION TO WEAR OFF. WILL CONTINUE WITH POC.
[2020-05-03] VITALS (25 sets, daily range): BP systolic 129–170; BP diastolic 72–90
--- NOTE | 2020-05-03 04:56 | NUR ---
PT NODS AND SHAKES HEAD; MOVEMENTS APPEAR JERKY, ALMOST UNCONTROLLED AT TIMES. RESTING VERY SPORATICALLY. AFTER BATH, PT COUGHING HAD SMALL AMT EMESIS GREEN BILE. ZOFRAN GIVEN. PT ATTEMPTS TO MOVE ARMS/LEGS, BUT CAN ONLY MOVE TOES AND HEAD. RA.
--- NOTE | 2020-05-03 09:58 | NUR ---
Assumed care at 0700, assessment and vital signs completed per ICU protocol. Dr. Joy rounded this am, plan of care discussed. RN will continue to monitor.
--- NOTE | 2020-05-03 22:19 | NUR ---
PT AWAKE. NONVERBAL. SHE WILL FOLLOW FINGERS AND ATTEMPT TO OPEN EYES BUT PINCHES THEM TIGHT WHEN ATTEMPTING TO ASSESS PUPILLARY RESPONSE. SHE DOES NOT MOVE ARMS OR LEGS. 2+ EDEMA NOTED UPPER AND LOWER EXTREMITIES. DELGADO INTACT TO DD DRAINING CLEAR YELLOW URINE. VSS. AFEBRILE SATS 93-94 % ON RA. NO EMESIS NOTED WHILE ON . TRANSFERRED PT TO [address] [place] [address] WITH HER BELONGINGS. REPORT GIVEN TO Carly AND IN FORMED OF NEED FOR NG TO [facility] AND NEED FOR IVFS SINCE PT IS NPO AND FAILED SPEECH SWALLOWING EVALUAIION TODAY.
--- NOTE | 2020-05-03 23:39 | NUR ---
PT ARRIVED FROM 3W. NG PLACED IN LEFT NARE AT 55CM. OBTAINED KUB AND PLACEMENT SHOWS NG TUBE IS IN CORRECT LOCATION. STARTED IS AT AND REMOVING YELLOW BILE. PT CAN SPEAK WHEN MOVING PT AND NOT HAPPY. WILL CONTINUE TO MONITOR.
--- NOTE | 2020-05-04 04:35 | NUR ---
NG TUBE GOT 300ML OUT OF LIGHT BROWN/YELLOW LIQUID. PT VERY JERKY WITH MOVEMENTS BEING STARTLED. STARTED NORMAL SALINE GTT AT 80ML/HR. DELGADO OUT PUT IS 50ML/HR.
[2020-05-04 04:37] VITALS: BP 150/83
[2020-05-04 04:47] LABS: CALCIUM 9.1 mg/dL (8.5-10.1); CREATININE 0.7 mg/dL (0.6-1.0); POTASSIUM 3.6 mmol/L (3.5-5.1)
[2020-05-04 04:53] LABS: HEMATOCRIT 34.2 % (37.0-47.0); HEMOGLOBIN 11.5 gm/dL (12.0-15.0); MCH 32.5 pg (26.0-34.0); MCHC 33.6 g/dL (28.0-37.0); MCV 96.7 fL (80.0-100.0); RBC 3.54 mil/uL (4.20-5.00); RDW 13.4 % (10.5-14.5); WBC 9.1 thou/uL (4.0-11.0)
[2020-05-04 07:17] VITALS: BP 157/80
[2020-05-04 11:26] VITALS: BP 150/79
[2020-05-04 15:31] VITALS: BP 176/74
--- NOTE | 2020-05-04 18:27 | NUR ---
ASSUMED CARE OF PT AT 0700. PT ABLE TO NOD TO YES/NO QUESTIONS. ABLE TO TRACK. THIS RN HAS NOT OBSERVED PT MOVE EXTREMETIES, BUT SHE IS ABLE TO MOVE HER HEAD. CONTINUOS TUBE FEEDING STARTED AT [address] SILVA. PT APPEARS TO BE TOLERATING WELL. SON UPDATED ON PT STATUS AT BEDSIDE BY THIS RN.
[2020-05-04 21:10] VITALS: BP 137/84
[2020-05-05 00:45] VITALS: BP 176/91
--- NOTE | 2020-05-05 03:25 | NUR ---
ASSUMED PT CARE AT 1900, VSS. PT ALERT AND AWAKE. DOESNT FOLLOW COMMANDS WHEN ASKED TO MOVE EXTREMITIES. NODS APPROPRIATELY. GROANS TO PAINFUL STIMULI. PT RESTED WELL ALL NOC, NO ISSUES. ON ROOM AIR DURING THE DAY AND BIBAP AT HS. NGT WITH VITAL HP AT 20ML/HR. WILL CONTINUE TO MONITOR PER POC PT IS STABLE WILL CONTINUE TO MONITOR PER POC.
[2020-05-05 04:45] VITALS: BP 131/87
[2020-05-05 06:33] LABS: HEMATOCRIT 32.4 % (37.0-47.0); HEMOGLOBIN 10.8 gm/dL (12.0-15.0); MCH 32.3 pg (26.0-34.0); MCHC 33.5 g/dL (28.0-37.0); MCV 96.4 fL (80.0-100.0); RBC 3.36 mil/uL (4.20-5.00); RDW 12.9 % (10.5-14.5); WBC 8.8 thou/uL (4.0-11.0)
[2020-05-05 06:59] LABS: ALBUMIN 2.2 g/dL (3.4-5.0); CALCIUM 8.6 mg/dL (8.5-10.1); CREATININE 0.5 mg/dL (0.6-1.0); PHOSPHORUS 3.2 mg/dL (2.5-4.9); POTASSIUM 3.8 mmol/L (3.5-5.1)
[2020-05-05 08:45] VITALS: BP 145/74
--- NOTE | 2020-05-05 12:20 | NUR ---
WOUND CONSULT; THERE IS A FRICTION INJURY TO THE PERIRECTAL AREA AND COCCYX. THE FRICTION SHEARINING IS EVEDENT FITH FRAYED SKIN TO THE PERIWOUND. NO S/S OF INFECTION. NO S/S OF INFECTION. RECOMMENDSTIONS; KHOA BID/PRN. DISCUSSED WITH SURINDER
[2020-05-05 12:37] VITALS: BP 150/67
[2020-05-05 16:14] VITALS: BP 147/85
--- NOTE | 2020-05-05 17:03 | NUR ---
RECEIVED PT'S CARE AROUND 0710; PT. ON BED; ALERT; DURING AM ASSESSMENT PT. ALERT TO PERSON; NOODS "NO" WHEN ASKED IF HAVE PAIN; ABLE TO SWALLOW AM MEDICATION WITH SPEECH THERAPY; IV MEDICATION GIVEN; RESIDUAL CHECK 300 ML; STOPPED FEEDING; PHYSICIAN NOTIFIED; PER PHYSICIAN HOLD FEEDING FOR 6H; SUGGESTED REGLAN; NO NEW ORDERS; PER DIETITIAN FEEDING CHANGED TO JEVITY 1.5 WITH GOAL RATE OF 45 ML/H; PHYSICIAN NOTIFIED; ORDERS RECEIVED; TURNED FROM SIDE TO SIDE; SR ON THE MONITORING; ASSESSMENT CHARGED; FOLLOWING POC; WILL PASS ON REPORT;
[2020-05-05 20:45] VITALS: BP 150/89
[2020-05-06 04:45] VITALS: BP 153/98
--- NOTE | 2020-05-06 04:56 | NUR ---
PT PLACED ON BIPAP AT HS O2 SATS 95%AND GREATER, DENIES ANY C/O PAIN, VSS, REPOSITIONING NEEDED WITH PROFO BOOTS AND EXTREMITIES ELEVATED, DELGADO WITH YELLOW URINE OUTPUT, ADVANCING TF TOWARDS GOAL, WILL CON'T TO MONITOR AND PROGRESS TOWARDS GOALS.
[2020-05-06 07:38] VITALS: BP 117/68
[2020-05-06 11:24] VITALS: BP 151/69
[2020-05-06 15:51] VITALS: BP 153/81
--- NOTE | 2020-05-06 17:27 | NUR ---
Patient transferred from ICU to CCU. Patient extubated from vent. Patient COVID positive, resp failure. Patient independent with adls barge captain. 5N consulted and following. With RN attempted to contact sonYoung oswald following
[2020-05-06 20:15] VITALS: BP 139/72
--- NOTE | 2020-05-06 20:27 | NUR ---
RECEIVED PT'S CARE AROUND 0720; PT. ON BED; ALERT; SR ON THE MONITOR; DURING AM ASSESSMENT PT. ALERT TO NAME; AWAKE; SR ON THE MONITOR; AM MEDICATIONS GIVE; WHEN ASK IF HAVING PAIN; NODED "NO"; TURNED FROM SIDE TO SIDE; RESIDUAL 125ML; PHYSICIAN NOTIFIED; NO NEW ORDERS; DURING THE AFTERNOON PT. RESTLESS; UPSET AND CRYING; ST. "NO NO NO" WHILE INVERTED AND EVERTED BLE; ST. "PLEASE PLEASE PLEASE" WHILE CRYING; ASKED IF HAD PAIN; NO ANSWER; WHEN ASKED IF OK TO GIVE MEDICATION ST. "NO NO NO"; AFTER EXPLAINED THE IMPORTANCE OF MEDICATION; AGREED; NEUROLOGY ROUNDING ON THE FLOOR; NOTIFIED ABOUT PT. 203; PER PHYSICIAN NOT AWARE OF PT. CONSULT; BACKGROUND GIVEN; ST. WILL ORDER AN MRI AND WILL TALK WITH PT'S SON; NUMBER GIVEN; ASSESSMENT CHARGED FOLLOWING POC; PASSED ON REPORT;
--- NOTE | 2020-05-07 02:59 | NUR ---
ASSESSMENTS CHARTED, MEDS CHARTED GIVEN. PATIENT RESTING IN BED DURING SHIFT. SMILES AND CRIES PERIODICALLY.UNCONTROLLED JERKS NOTED. PATIENT UNABLE TO GRASP OR RAISE BILATERAL ARMS. ABLE TO MOVE LEGS SLIGHTLY. PATIENT ON BIPAP DURING NIGHT. DELGADO IN PLACE. NG TUBE IN PLACE WITH JEVITY 1.5 RUNNING. ACCU CHECKS Q6. PATIENT WORKING WITH PT/OT/ST. TURNED Q2 HOURS. ZGARD ON BOTTOM. RECALLING CONSULT FOR DR. LEON. FALL PRECAUTIONS IN PLACE DURING SHIFT.
[2020-05-07 04:45] VITALS: BP 144/71
[2020-05-07 08:45] VITALS: BP 139/65
[2020-05-07 12:03] VITALS: BP 154/76
--- NOTE | 2020-05-07 12:19 | NUR ---
WOUND CARE F/U; THE PATIENT JUST HAD A EPISODE OF DIARRHEA WHICH EXTENT REQUIRED A COMPLETE BED LINEN CHANGE. THE WOUND TO THE PERIRECTUM AREA WAS CONTAMINATED WITH STOOL. THE WOUND WAS A PALE PINK. RECOMMENDATIONS; CONTINUE WITH KHOA URRUTIA RN PRESENT.
--- NOTE | 2020-05-07 13:30 | NUR ---
PT WORKED WITH PT/OT/ST TODAY. NO SIGNIFICANT CHANGE. PT DID NOT DO A VIDEO SWALLOW STUDY. NEEDS CONTINUED EXTENSIVE PT/OT. NEUROLOGY HAS YET TO VISIT PT, CONSULT CALLED MULTIPLE TIMES. PT DOES FSC, THOUGH RIGHT ARM IS FLACID. IS ABLE TO ANSWER QUESTIONS APPROPRIATELY WITH ONE WORD ANSWERS. PT AFEBRILE, ADEQUATE UOP, ONE LARGE WATERY BM, TOLERATING TUBE FEEDS AT GOAL WITH RESIDUALS WNL. WOUND CARE SAW PT TODAY AND PLACED Z-GUARD ON COCCYX. PT/FAMILY/FRIEND HAVE BEEN UPDATED AND EDUCATED ON PT CONDITION AND POC. PROVIDER WAS ASKED TO SPEAK WITH PT'S SON ON MULTIPLE OCCASIONS. PT SLOWLY PROGRESSING TOWARDS POC.
[2020-05-07 15:21] VITALS: BP 137/64
--- NOTE | 2020-05-07 17:44 | NUR ---
Case discussed with the care team. Pt's son and friend Denisse here to visit today. Neuro consult in process. MRI pending. PT/OT/ST and rehab medicine 5N following. Progressing slowly. NPO with NG for tube feedings. Dc time frame is uncertain pending her progress.
[2020-05-07 21:09] VITALS: BP 144/74
[2020-05-08 05:07] VITALS: BP 156/86
[2020-05-08 07:03] LABS: ALBUMIN 2.1 g/dL (3.4-5.0); CREATININE 0.5 mg/dL (0.6-1.0); PHOSPHORUS 1.9 mg/dL (2.5-4.9); POTASSIUM 3.5 mmol/L (3.5-5.1)
[2020-05-08 08:27] VITALS: BP 154/73
--- NOTE | 2020-05-08 12:38 | NUR ---
Case discussed with the care team. The attending is reaching out to the pt's son José Miguel to discuss her plan of care. Oral Surgery Physician spoke with José Miguel and he will be here tomorrow morning between 9;30 and 11:00. Nursing to page the attending so they can visit at bedside. Pt will likely need LTAC stay prior to being a candidate for an acute rehab program. Pt's son educated on dc planning options for LTAC, Acute Rehab and SNF. He notes preference for [facility] as it is closer to his home and he knew someone who has been there as a patient. Pt had MRI today. Mental status improving slowly. PT/OT/ST is working with the pt. Dc equipment planner to fax referral to [facility] for possible ltac stay when medically stable. Their liason Afua is aware and Rev codes provided ( 2 at 120, 24 at 206). Dc timeframe is uncertain pending her plan of care and progress.
--- NOTE | 2020-05-08 12:42 | NUR ---
PT ALERT TO SELF AND IS ABLE TO ANWSER YES AND NO QUESTIONS, UNABLE TO STATE NAME. PT TOLERATED PT/OT WELL AND WAS ABLE TO SIT ON SIDE OF BED WITH ASSISTANCE. JEVITY FEEDING CONT AT 45ML/HR, ORAL CARE PROVIDED WITH TURNS Q2HRS. NO SIGNS OF DISTRESS NOTED AT THIS TIME, PT IS RESTING IN BED QUIETLY WATCHING TV. HOURLY ROUNDING ON PT D/T POOR DEXTERITY.
--- NOTE | 2020-05-08 13:50 | NUR ---
FAXED REFERRAL TO [facility] RECEIVED CONFIRMATION. DP TO FOLLOW.
[2020-05-08 15:15] VITALS: BP 152/81
--- NOTE | 2020-05-08 18:20 | NUR ---
PT RESTING IN BED AT THIS TIME WITH NO SIGNS OF DISTRESS NOTED, PT MOVING RIGHT EXTREMITY MORE THAN AM ASSESSMENT AND IS MAKING GREAT IMPROVMENTS WITH SPEECH AND TRYING TO EXPRESS HERSELF. PT STABLE AT THIS TIME AND NO CONCERNS NOTED.
[2020-05-08 19:29] VITALS: BP 151/77
--- NOTE | 2020-05-09 03:52 | NUR ---
Assumed pt care at 1900. Pt is awake, and nods to conversations. Pt is laying in bed, resting comfortably. Denies pain. Assessment completed and documented. NGT in place. Vital signs in place. Scheduled meds administered to pt. Pt rested through the night. No acute events overnight. Continue to monitor. No further needs at this time.
[2020-05-09 04:16] VITALS: BP 154/83
[2020-05-09 06:01] LABS: ALBUMIN 1.9 g/dL (3.4-5.0); CALCIUM 8.1 mg/dL (8.5-10.1); CREATININE 0.5 mg/dL (0.6-1.0); MAGNESIUM 1.8 mg/dL (1.8-2.4); POTASSIUM 3.8 mmol/L (3.5-5.1); TOTAL BILIRUBIN 0.3 mg/dL (0.2-1.0); TOTAL PROTEIN 6.2 g/dL (6.4-8.2)
[2020-05-09 08:00] VITALS: BP 154/74
--- NOTE | 2020-05-09 10:42 | NUR ---
Nutrition: BG 190-201 past 2 days. Consider change tube feeding formula to Glucerna 1.2 at 60 mL/hr goal. Phos 1.9, REC replete phosphorus.
--- NOTE | 2020-05-09 10:48 | NUR ---
WOUND CARE F/U; ASSESSED BUTTOCKS/SACRAL AREA, WOUND ALMOST CLOSED, HEALING, PINK VIABLE TISSUE PRESENT, NO S/S INFECTION, STILL INCONT AT TIMES STOOL, FAMILY AT BS, LOW AIR LOSS PUMP APPLIED TO BED, AWAKE, COOPERATIVE RECOMMENDATIONS; CONT CURRENT POC OF KHOA,LOW AIR LOSS PUMP, TURN AND REPOSTION Q2 HOURS CATH LAB RADIOLOGICAL TECHNOLOGIST AWARE
[2020-05-09 12:00] VITALS: BP 143/70
--- NOTE | 2020-05-09 12:03 | NUR ---
FAXED CLINICAL UPDATES TO [facility]. WILL CONFIRM WITH IVY THEY RECEIVED. [facility] P [phone]; FAX [phone]
--- NOTE | 2020-05-09 15:45 | NUR ---
Case reviewed with the care team. Son José Miguel at bedside this am and talked with the attending and several specialists. Peg planned for Tuesday per GI. Pt is getting 2 more doses of IVIG per neruo. Bipap at [facility] to continue which will qualify her for LTAC level of care. [facility] updated and they can accept early next week. They would like an updated Tuesday morning.
[2020-05-09 16:00] VITALS: BP 143/70; BP 165/74
[2020-05-09 19:40] VITALS: BP 170/88
--- NOTE | 2020-05-09 19:43 | NUR ---
RECEIVED PT'S CARE AROUND 0730; PT. ON BED; ALERT; DURING AM ASSESSMENT PT. ALERT TO PERSON; FORGETFUL; NO C/O PAIN; AM MEDICATIONS GIVEN; EDUCATED ABOUT TURNING AND MEDICATIONS; ST. UNDERSTANDING; PHYSICIAN NOTIFIED ABOUT IV FLUIDS RUNNING SINCE EARLY ON THE WEEK; ORDERS RECEIVED; D/C IV FLUIDS; PER CAREERS COUNSELLOR FEEDING SWITCH TO GLUCERNA AT 60 ML/H; WATER FLUSHES 200 ML Q6H; PHYSICIAN NOTIFIED; PER PHYSICIAN WATER FLUSHES 100 ML Q6H; ORDERS ENTERED; SON AT THE BED SIDE DURING THE MORNING; REQUESTED TO TALK WITH PHYSICIAN; PHYSICIAN NOTIFIED BY PAGER AND KRYPTOTEX; NO ANSWER BACK; AFTER ABOUT ONE HOUR, RELATIVE REQUESTED PHYSICIAN TO BE PAGED AGAIN DUE TO SON WORK DURING THE NIGHTS AND CAN STAY AT THE HOSPITAL DURING THE AFTERNOON; PHYSICIAN PAGED AND NOTIFIED; STYoung AWARED OF PT'S SON AT THE BED SIDE; ON HIS WAY; RELATIVES NOTIFIED; LOW RESIDUAL THROUGH THE DAY; TURNING FROM SIDE TO SIDE; ASSESSMENT CHARGED; FOLLOWING POC; PASSED ON REPORT;
[2020-05-10 00:01] VITALS: BP 182/97
--- NOTE | 2020-05-10 03:39 | NUR ---
Assumed pt care at 1900. Pt is alert and nods head to communicate. No sign of distress noted in pt. Pt is stable. Assessment completed and documented. Elevated blood pressure noted with vitals. PRN metoprolol administered. Also, pt was able to wear and tolerate bipap during the night. She was hesistant but later kep it on. No acute events overnight. Continue to monitor. No further needs at this time.
[2020-05-10 03:58] VITALS: BP 142/72
[2020-05-10 06:13] LABS: HEMATOCRIT 32.5 % (37.0-47.0); HEMOGLOBIN 11.3 gm/dL (12.0-15.0); MCH 33.2 pg (26.0-34.0); MCHC 34.8 g/dL (28.0-37.0); MCV 95.5 fL (80.0-100.0); RBC 3.4 mil/uL (4.20-5.00); RDW 13.5 % (10.5-14.5); WBC 7.5 thou/uL (4.0-11.0)
[2020-05-10 06:23] LABS: ALBUMIN 2.3 g/dL (3.4-5.0); CREATININE 0.6 mg/dL (0.6-1.0); PHOSPHORUS 3.3 mg/dL (2.5-4.9)
[2020-05-10 08:08] VITALS: BP 144/80
[2020-05-10 16:15] VITALS: BP 148/90
--- NOTE | 2020-05-10 17:39 | NUR ---
PT IS AWAKE, ORIENTED TO SELF. PT HAS DIFFICULTY VERBALIZING NEEDS, BUT WILL ANSWER YES/NO QUESTIONS. PT VERBALIZED "PLEASE HELP ME." PT STATED "I HURT." RX ACETAMINOPHEN GIVEN, NO PAIN RELIEF. NEURO CONSULTED. RX GABAPENTIN GIVEN. PT ABLE TO ANSWER PAIN WAS OKAY. PT SON AT BEDSIDE. POC TO CONTINUE TO MONITOR O2 SATS, NG TUBE. PT IS ON GLUCERNA 1.2 AT 60 ML/HR. GOAL IS 60 ML/HR. FALL PRECAUTIONS IN PLACE. NO CONCERNS AT THIS TIME.
[2020-05-10 20:00] VITALS: BP 156/97
[2020-05-10 23:45] VITALS: BP 120/83
[2020-05-11 04:00] VITALS: BP 117/87
[2020-05-11 08:00] VITALS: BP 140/90
--- NOTE | 2020-05-11 09:57 | NUR ---
VASCULAR ACCESS NURSE ROUNDING. THIS PATIENT IS NO LONGER ON IVF. SHE WILL HAVE A PEG TUBE PLACEMENT ON TUESDAY, IF CENTRAL LINE IS NO LONGER NECESSARY- SUGGEST REMOVAL TO DECREASE RISK OF A BLOOD STREAM INFECTION.
[2020-05-11 12:00] VITALS: BP 143/91
--- NOTE | 2020-05-11 15:34 | NUR ---
PT IS AWAKE, AXOX3, PLEASANT. PT TOLERATING NG TUBE FEEDING. GI CONSULTED, DR SHUKLA CONSULTED. POC IS NPO AFTER MIDNIGHT, HOLD LOVENOX. PT TO HAVE PEG TUBE AND EGD 05/12/20. FALL PRECAUTIONS IN PLACE. PT SON AT THE BEDSIDE. NO CONCERNS AT THIS TIME.
[2020-05-11 16:00] VITALS: BP 147/88
[2020-05-11 20:15] VITALS: BP 136/83
[2020-05-12] VITALS (11 sets, daily range): BP systolic 102–188; BP diastolic 55–101
--- NOTE | 2020-05-12 05:44 | NUR ---
PATIENT A/OX3. DENIES PAIN, VSS, AFEBRILE. REFUSED TO KEEP BIPAP ON, NOTED PULLING AND GETTING AGITATED, WANTED IT OFF 30 MINUTES AFTER HAVING IT ON. BIPAP TURNED OFF, SATO2 98%. PLAN FOR PEG PLACEMENT THIS MORNING. PT NPO SINCE MIDNIGHT. PATIENT SLEPT WELL
--- NOTE | 2020-05-12 08:17 | NUR ---
PT IS AWAKE, OX3. HAVING PEG TUBE PLACED THIS MORNING. GAVE REPORT TO GI AT 0700. PT WAS NPO SINCE MIDNIGHT. NO CONCERNS AT THIS TIME.
--- NOTE | 2020-05-12 11:11 | NUR ---
WOUND CARE F/U; PHOTOGRAPHY TEACHER CHANGING LINEN, ASSESSED BUTTOCK/SACRAL AREA, HEALING, ALMOST CLOSED, NO S/S INFECTION, NO DRAINAGE, ALERT, COOPERATIVE, LOW AIR LOSS PUMP REMAINS ON BED RECOMMENDATIONS; CONT Z GUARD TO AREA, CONT LOW AIR LOSS PUMP TO BED, TURN Q 2HOURS CLEANING SUPERVISOR AWARE
--- NOTE | 2020-05-12 14:51 | NUR ---
PT IS AXOX3, ANSWERS YES OR NO QUESTIONS, PLEASANT. PT HAD PEG TUBE PLACEMENT IN AM. PT DENIES PAIN, SITTING SEMIFOWLERS, COMFORTABLE. PT/OT CONSULTED, GOT PT TO SIT ON SIDE OF BED. PT TOLERATED WELL. POC IS TO START TUBE FEEDING 05/13/[address] VALENCIA. CASE MGMT CONSULTED. PLAN IS TO DISCHARGE TO [facility] FOR REHAB. FALL PRECAUTIONS IN PLACE. NO CONCERNS AT THIS TIME.
--- NOTE | 2020-05-12 15:26 | NUR ---
Spoke with Rn plan transfer to med/surg. Phys reports possible dc to [facility] in am. Updated son via phone message on his phone. Faxed clinical updates to [facility] and sp with Jennifer to alert of tenative dc in am.
--- NOTE | 2020-05-12 20:02 | NUR ---
Transfer from CCU at 1700; transferred to bed safely. A+Ox3. On MS, not on telemetry; no complains and signs of chest pain, crushing sensation and heaviness. On room air during day shift; Bipap at HS. On NPO- mouth care done. With PEG tube in place; dressing C/D/I- may use for meds and H20; TF to resume tomorrow once cleared by Gastro. On blood sugar monitoring, taken and recorded accordingly. No nausea, no vomiting and no abdominal pain noted. With loza in place, output measured and recorded accordingly. With redness at her buttocks- pt turned on her sides; Z guard applied as well. With 3 lumen PICC line at R IJ- saline locked. No complains of pain made during assessment. Assisted in ADLs. Possible discharge to [facility] tomorrow as per previous RN. To continue monitoring patient.
--- NOTE | 2020-05-13 03:28 | NUR ---
PT CARE ASSUMED WITH PT IN BED RESTING.PT IS A/O X3.PT IS ON BEDREST AND Q2 TURN.PT CALL OUT FOR HELP AND ASKED TO NE TURNED FROM SIDE TO SIDE.PT IS ON ROOM AIR DURING THE DAY AND ON BIPAP OR O2 AT NIGHT.PT IS NPO AND HAS A PEG TUBE TO RESUME FEEDING AFTER BEING CLEARED BY GI TODAY.PT IS ON ACCUCHCEK Q6H.REDNESS ON BOTTOM WITH ZGUARD NEEDED AND ON AIR LOSS MATTRESS.WILL CONTINUE TO MONITOR TO MONITOR POC
[2020-05-13 07:28] VITALS: BP 144/78
[2020-05-13] MEDS ORDERED: GABAPENTIN 100100 MG PO (08:20)
[2020-05-13] MEDS ORDERED: ENOXAPARIN40 MG/0.1 SUBQ (08:20)
[2020-05-13] MEDS ORDERED: PEPCID20 MG PO (08:21)
--- NOTE | 2020-05-13 14:16 | NUR ---
CARE TEAM INDICATED THAT PT IS MEDICALLY STABLE TO DISCHARGE TO [facility] THIS DAY. CHART COPY MADE. ORDERS FAXED. NURSE GIVEN NUMBER FOR REPORT. PT'S IS ADMITTING TO DR. ONEAL ROOM 421. [facility] STRETCHER TIP CUTTER SCHEDULED FOR 1530. CM SHRUTHI AND LEFT VM ON PT'S SON ANSWERING MACHINE. NO OTHER CM INTERVENTION INDICATED. CASE CLOSED.
--- NOTE | 2020-05-13 15:39 | NUR ---
Assumed pt care at 7am.Pt in bed resting.Alert and oriented to self and place. Assessment completed.vss.Dr Joy here.dc order noted.Pt was restless and agitated later this shift.Dr Joy notified,order received.Pt was scheduled to dc to [facility] at 1530 today.Report given to Lauren.Tube feeding stareted around 10am at 20ml/hr and water flushes done as ordered.Will continue to monitor.
[2020-05-13 15:47] VITALS: BP 129/73
== END 2020-05-13 16:30 | DRG 870 ==
LOC: ER 08:02 → 2N 11:51 → EROBS 11:51 → 3W 11:51 → ICU 04-15 09:28 → 3W 05-03 18:47 → 2N 05-03 21:26 → 4W 05-12 16:33
PROVIDERS: Emergency Medicine; Hospitalist; Internal Medicine Pulmonary Disease; Nurse Practitioner Family; Pediatrics; Specialist; ADMIT Internal Medicine; ATTEND Internal Medicine
PROC: XW033E5 Introduction of Remdesivir Anti-infective into Peripheral Vein, Percutaneous Approach, New Technology Group 5 (ICD-10-PCS; principal; 2020-04-13)
PROC: 5A0935A Assistance with Respiratory Ventilation, Less than 24 Consecutive Hours, High Flow/Velocity Cannula (ICD-10-PCS; 2020-04-14)
PROC: 5A09357 Assistance with Respiratory Ventilation, Less than 24 Consecutive Hours, Continuous Positive Airway Pressure (ICD-10-PCS; 2020-04-14)
PROC: 5A1955Z Respiratory Ventilation, Greater than 96 Consecutive Hours (ICD-10-PCS; 2020-04-15)
PROC: 0BH17EZ Insertion of Endotracheal Airway into Trachea, Via Natural or Artificial Opening (ICD-10-PCS; 2020-04-15)
PROC: 5A0935A Assistance with Respiratory Ventilation, Less than 24 Consecutive Hours, High Flow/Velocity Cannula (ICD-10-PCS; 2020-04-15)
PROC: 5A09357 Assistance with Respiratory Ventilation, Less than 24 Consecutive Hours, Continuous Positive Airway Pressure (ICD-10-PCS; 2020-04-15)
PROC: 02H633Z Insertion of Infusion Device into Right Atrium, Percutaneous Approach (ICD-10-PCS; 2020-04-15)
PROC: 0D9670Z Drainage of Stomach with Drainage Device, Via Natural or Artificial Opening (ICD-10-PCS; 2020-04-15)
PROC: XW13325 Transfusion of Convalescent Plasma (Nonautologous) into Peripheral Vein, Percutaneous Approach, New Technology Group 5 (ICD-10-PCS; 2020-04-16)
PROC: 5A09357 Assistance with Respiratory Ventilation, Less than 24 Consecutive Hours, Continuous Positive Airway Pressure (ICD-10-PCS; 2020-05-01)
PROC: 5A09357 Assistance with Respiratory Ventilation, Less than 24 Consecutive Hours, Continuous Positive Airway Pressure (ICD-10-PCS; 2020-05-02)
PROC: 5A09357 Assistance with Respiratory Ventilation, Less than 24 Consecutive Hours, Continuous Positive Airway Pressure (ICD-10-PCS; 2020-05-03)
PROC: 5A09357 Assistance with Respiratory Ventilation, Less than 24 Consecutive Hours, Continuous Positive Airway Pressure (ICD-10-PCS; 2020-05-05)
PROC: 5A09357 Assistance with Respiratory Ventilation, Less than 24 Consecutive Hours, Continuous Positive Airway Pressure (ICD-10-PCS; 2020-05-08)
PROC: 0DH68UZ Insertion of Feeding Device into Stomach, Via Natural or Artificial Opening Endoscopic (ICD-10-PCS; 2020-05-12)
DX: A41.89 Other specified sepsis (principal); U07.1 COVID-19; J12.82 Pneumonia due to coronavirus disease 2019; E43 Unspecified severe protein-calorie malnutrition; G92 Toxic encephalopathy; J96.21 Acute and chronic respiratory failure with hypoxia; G72.81 Critical illness myopathy; R47.01 Aphasia; Z43.1 Encounter for attention to gastrostomy; E86.0 Dehydration; I10 Essential (primary) hypertension; E66.9 Obesity, unspecified; R53.81 Other malaise; E11.65 Type 2 diabetes mellitus with hyperglycemia; E11.42 Type 2 diabetes mellitus with diabetic polyneuropathy; R13.10 Dysphagia, unspecified; R63.3 Feeding difficulties; Z68.28 Body mass index [BMI] 28.0-28.9, adult; Z79.899 Other long term (current) drug therapy
CPT/HCPCS: 10045; 10080; 10081; 10203; 10879; 62110; 62900; 70005; 85076

== ENCOUNTER 2020-06-02 09:49 | Inpatient (IN) | payer OTHER ==
[~2020-06-02] VITALS: Ht 162.6 cm; Wt 71.9 kg
--- NOTE | ~2020-06-02 | HC ---
[facility] [place] [address] [place] [address] CONSULTATION Name: HARLEY BARRERA Room #: 503-P ADM IN M.R.#: [id number] Admission: 06/02/20 Attend Phys: José Miguel Gonzalez MD Discharge: Date of : 48 Report #: [id number] THIS REPORT FOR: cc: Anjelica Lux DNP, Mary E. DNP Deutch, Neal B. PhD ~ DATE OF SERVICE: 06/08/2020 NEUROBEHAVIORAL STATUS EXAM ATTENDING PHYSICIAN: José Miguel Gonzalez MD CONSULTING PHYSICIAN: Romaine Cervantes, PhD. CLINICAL PRESENTATION: The patient is a 70-year-old female admitted to the rehabilitation unit at [facility] for a comprehensive inpatient rehabilitation program. She reported to have had COVID-19 and an extended recovery. Her hospital stay was prolonged and required intubation, PEG tube placement and encephalopathy. 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 Her condition has been a gradual improvement. She has had a PEG tube discontinued and was tolerating a regular diet. Her assessment on admission to the rehab unit is critical illness myopathy, acute toxic encephalopathy, post COVID-19 pneumonia with respiratory failure, dysphagia, diabetes mellitus type 2, hypertension, possible GBS and status post immunoglobulin. Neuropsychological consultation was requested to provide assistance in the assessment of cognitive and emotional status and to provide recommendations and services. Prior to her infection with COVID, she was living independently by herself in her own home. She is a retired nurse. She has one child. She does not report a history of having had prior treatment for anxiety or depression. She also denies having experienced any neurocognitive deficits prior to her COVID-19 infection. TECHNIQUES UTILIZED: Clinical interview, review of medical records, staff consultation and behavioral observation, mini mental status exam 2 standard version, clock drawing and verbal fluency assessment. EXAMINATION FINDINGS: The patient was alert and cooperative with the assessment. She accurately described events surrounding her hospitalization. There is no evidence of aphasia. She does not describe auditory or visual hallucinations. There is no evidence of thought disorder. She describes a 3-week period of amnesia during the time in which she was intubated. She [facility] [address] [place] [address] CONSULTATION Name: HARLEY BARRERA Room #: 503-P ADM IN M.R.#: [id number] Admission: 06/02/20 Attend Phys: José Miguel Gonzalez MD Discharge: Date of : 48 Report #: [id number] describes her symptoms to include sleep disturbance. She has been taking trazodone to assist with sleep. She does not report difficulty with appetite, memory or word finding. She also denies subjective depression. She does report increase in anxiety that included bad dreams, however, she indicates her anxiety is much better as she regains increased independence. Her performance on the MMSE 2 brief version is within normal limits with a raw score 16 of 16. Performance on the MMSE 2 standard version is within normal limits with a raw score 29 of 30. Difficulty with serial sevens was noted on with missing one item is noted. Clock drawing was within normal limits for visual spatial organization. However, she was unable to accurately set the hands at a designated time. Verbal fluency assessment shows letter fluency could be in the borderline range at 3rd percentile with a raw score of 17 and a T score 31. Category fluency was in the borderline range at the 4th percentile with a T score of 33. Overall, total fluency was extremely low with a raw score of 49, T score of 27 and percentile rank of 1. The patient is alert and oriented. However, she is showing deficits in verbal fluency, which can often suggest executive dysfunction. DIAGNOSTIC IMPRESSION: 1. 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 Adjustment disorder with anxious mood. RECOMMENDATIONS: The patient will benefit from increased assistance in the management of medication and finances to ensure no errors were made upon her return home. A more thorough neuropsychological assessment may be of benefit prior to return to prior levels of independence. Additional assistance and planning and problem solving are likely to be necessary. Speech therapy will be of benefit to assist in the development of compensatory techniques for planning and problem solving. Thank you very much for allowing me to provide the consultation on this patient. By: [id number] Romaine Cervantes, PhD /nt
[~2020-06-02 09:49] MED LIST changes: +ENOXAPARIN40 MG/0.1 SUBQ; +GABAPENTIN 100100 MG PO; +PEPCID20 MG PO
[2020-06-02 15:02] VITALS: BP 153/90
[2020-06-02] MEDS ORDERED: REMEDY CALAZIM113 G2 TOP (15:53)
[2020-06-02] MEDS ORDERED: GLIMEPIRIDE1 MG PO (15:55)
[2020-06-02] MEDS ORDERED: DESYREL150 MG PO (15:59)
--- NOTE | 2020-06-02 17:27 | NUR ---
PT ADMITTED TO ROOM 503. SHE IS ALERT AND ORIENTED, COOPERATIVE AND ANSWERED ALL COGNITIVE QUESTIONS APPROPRIATELY. PT NOTED DURING ASSESSMENT THAT SHE HAS LE WEAKNESS, AND CURRENTLY FEELS THAT SHE HAS "FOOT DROP" HER ANKLES ARE WEAK WITH FLEXION. SKIN IS CLEAR, AND PEG TUBE IS INTACT AND NON-TENDER, NBO REDNESS AT INSERTION SITE. PER PHARMACY, THE LOTION THAT WAS ORDERED ON ADMISSION IS NON-FORMULARY, BUT IT WAS NOTED TO DR. WILCOX THAT HER SKIN IS INTACT AND THIS ORDER WAS DISREGARDED. PT HAS CALL LIGHT IN REACH AND REPORT HAS BEEN GIVEWN TO ONCOMING SHIFT.
[2020-06-02 19:02] VITALS: BP 146/86
--- NOTE | 2020-06-03 01:24 | NUR ---
PT ALERT AND ORIENTED X 4. UP TO BSC WITH ASSIST X 1. PT REFUSED COLACE AND ACCUCHECK AT HS. PT DENIES PAIN OR DISCOMFORT. BED ALARM ON FOR SAFETY. PT APPEARS TO BE SLEEPING ON HOURLY ROUNDS.
[2020-06-03 05:37] LABS: HEMATOCRIT 35.2 % (37.0-47.0); HEMOGLOBIN 11.8 gm/dL (12.0-15.0); MCH 32.7 pg (26.0-34.0); MCHC 33.6 g/dL (28.0-37.0); MCV 97.1 fL (80.0-100.0); RBC 3.62 mil/uL (4.20-5.00); RDW 14.4 % (10.5-14.5); WBC 5.6 thou/uL (4.0-11.0)
[2020-06-03 06:20] LABS: CREATININE 0.6 mg/dL (0.6-1.0); POTASSIUM 3.6 mmol/L (3.5-5.1)
[2020-06-03 07:12] VITALS: BP 144/85
--- NOTE | 2020-06-03 10:11 | NUR ---
chart review. cm tried to visit with janette, unable to rt she is working with speech therapy. noted pt was here last month and dc to [facility], past hospital admit here she was covid +, intubated and extubated, with peg tube for nutritional support. she is here for acute rehab. will cont following as needed for dc needs.
[2020-06-03 13:05] VITALS: BP 140/85
--- NOTE | 2020-06-03 13:27 | NUR ---
team metting, reccommendation: has 2 [address] at home. son possible going to be staying with her little after dc home. re team with anticipated 10-14 days dc home.
--- NOTE | 2020-06-03 16:20 | NUR ---
PT ALERT AND ORIENTED TIMES FOUR. VSS. PT DENIES PAIN/SOA. PT TOLERATES MEDS AND MEALS. PT WORKED WELL WITH PT/OT. PT UP SITTING IN THE CHAIR FOR MOST OF THE SHIFT. PT PROGRESSING TO [facility] POC GOALS.
[2020-06-03 19:10] VITALS: BP 146/81
--- NOTE | 2020-06-04 04:25 | NUR ---
ASSUMED CARE OF PT AT SHIFT CHANGE. PT IS AOX4 AND LETS NEEDS BE KNOWN. FALL PRECAUTION IN PLACE. PT DENIED PAIN, NAUSEA OR SOA. ASSESSMENT CHARTED. PT WAS AKILA TO GET COMFORTABLE AND SLEEP PART OF THE SHIFT. VSS AND NO S/S OF ACUTE DISTRESS. WILL CONTINUE TO MONITOR FOR CHANGES.
[2020-06-04 07:15] VITALS: BP 144/87
--- NOTE | 2020-06-04 15:51 | NUR ---
PT ALERT AND ORIENTED TIMES FOUR. VSS. PT DENIES PAIN/SOA. PT TOLERATES MEDS AND MEALS. PT WORKS WELL WITH PT/OT. PT PROGRESSING TOWRADS POC GOALS
[2020-06-04 19:37] VITALS: BP 145/79
--- NOTE | 2020-06-05 02:30 | NUR ---
PT ALERT AND ORIENTED X 4. UP TO W/C WITH ASSIST X 1 THEN TO BR. PEG TUBE INTACT. PT DENIES PAIN OR DISCOMFORT. BED ALARM ON FOR SAFETY. PT APPEARS TO BE SLEEPING ON HOURLY ROUNDS.
[2020-06-05 08:10] VITALS: BP 129/78
--- NOTE | 2020-06-05 10:53 | NUR ---
ASSUMED CARE AT 0700 TODAY. PT. ALERT & ORIENTED TIMES 4. DENIES PAIN/SOA. SHE TOOK HER MORNING MEDICATIONS WITHOUT PROBLEMS. NEW ORDER RECEIVED FOR ERGACALCIFEROL, ASCORBIC ACID AND ZINC. SHE TOOK THESE THIS MORNING. SHE IS EATING HER MEALS WELL. WORKING WITH PT/OT TODAY. HAS EDEMA NOTED TO ANKLES BILATERALLY. WILL CONTINUE TO MONITOR.
[2020-06-05 19:04] VITALS: BP 148/75
--- NOTE | 2020-06-05 22:00 | NUR ---
UP TO TOILET BY TRANSFERRING TO AND FROM WHEELCHAIR. BRUSHING HER OWN TEETH WHILE UP IN WC. WANTS TO TAKE HER VITAMINS TOMORROW, BUT NOT ALL AT ONCE. HAS INTACT PEG TUBE THAT SHE HAS NOT USED FOR A WHILE. STATES THAT SHE WILL ACCEPT TAKING HER LOVENOX SHOT SINCE SHE IS REFUSING SCDs.
[2020-06-06 07:15] VITALS: BP 131/83
--- NOTE | 2020-06-06 15:27 | NUR ---
ASSUMED CARE AT 0700 THIS MORNING. SHE SITS IN CHAIR BY BED DURING THE DAYTIME. COOPERATIVE WITH MEALS/MEDS. WORKS WELL WITH OT/PT. VSS. A&OX4. TOOK HER VITAMINS SPACED APART. SHE STATED HER STOMACH DID NOT HURT BAD WHEN SHE TOOK THEM THAT WAY. FMLA PAPERS FILLED OUT AND RETURNED TO THE PT. PROGRESSING TOWARDS POC GOALS.
[2020-06-06 19:45] VITALS: BP 142/83
--- NOTE | 2020-06-07 02:09 | NUR ---
TRANSFERS TO AND FROM TO GET TO TOILET AND WASH UP WITH OWN ORAL CARE AT SINK SITTING IN WHILE THERE. STATES THAT WENT FURTHER WITH THERAPY AND IS ALSO LESS SORE AFTERWARDS, ENCOURAGED BY HER PROGRESS. CURIOUS IF SHE WILL NEED TO CONTINUE WITH GABAPENTIN WHEN SHE GOES HOME, IS IT WHAT IS HELPING HER, AND/OR WILL SHE OUTGROW THE NEED FOR IT. APPRECIATES HAVING HER VITAMINS THIS MORNING NOT GIVEN ALL AT THE SAME TIME, HER STOMACH WAS LESS "OVERWHELMED"
--- NOTE | 2020-06-07 09:50 | NUR ---
ASSUMED CARE AT 0700. PATIENT IS ALERT AND ORIENTED X4. PATIENT HELM, DETAIL ASSEMBLER ARE EQUAL. LUNGS ARE CLEAR. ABD IS SOFT WITH BSX4. PEG TUBE IS INTACT. PATIENT IS UP WITH SBA. PATIENT IS UP TO THE CHAIR FOR BREAKFAST. PATIENT IS VOIDING OTTO COLORED URINE. FALL AND SAFETY PROTOCOLS IN PLACE. DEDNIES PAIN AT THIS TIME. CONTINUES TO PROGRESS SLOWLY TOWARDS D/C GOALS. WILL CONTINUE TO MONITER.
[2020-06-07 19:43] VITALS: BP 145/83
--- NOTE | 2020-06-07 21:40 | NUR ---
PT REFUSED GAIT BELT THIS EVENING AND REFUSED TO LET STAFF STAY WITH HER WHILE SHE WAS DRESSING. PT SAID THAT STAFF HAVE BEEN LETTING HER GET DRESSED AND REFUSE GAIT BELT.
--- NOTE | 2020-06-07 22:45 | NUR ---
PT ASSESSMENT COMPLETED AND VSS. MEDS GIVEN ORDERED AND WELL TOLERATED. FALL PRECAUTIONS IN PLACE. PT REFUSED ASST WITH DRESSING AND GETTING READY FOR BED. SHE DID NOT ALLOW STAFF TO STAY IN THE ROOM. PT DENIES PAIN. PEG TUDE IN PLACE AND INTACT. SLEEPING WELL. WILL CONTINUE TO MONITOR FREQUENTLY.
[2020-06-08 07:15] VITALS: BP 138/72
--- NOTE | 2020-06-08 10:46 | NUR ---
ASSUMED CARE AT 0700 THIS MORNING. PT. UP IN CHAIR, ATE BREAKFAST. TOOK MORNING MEDICATIONS WITHOUT PROBLEMS. NO NEW PROBLEMS NOTED OR VOICED. VSS. ASSESSMENT UNREMARKABLE. SHE WALKED WITH RN/GAIT BELT/WALKER AROUND THE UNIT 4 TIMES. SHE CONTUES TO HAVE A PEG TUBE THAT IS NOT BEING USED, BUT IS INTACT. SHE IS A&OX4. SHE IS ANXIOUS TO SHOW HER SON THIS AFTERNOON THAT SHE IS WALKING WELL. SHE WAS ASSURED STAFF WOULD ASSIST HER WITH THIS. WILL CONTINUE TO MONITOR.
[2020-06-08 20:11] VITALS: BP 129/82
--- NOTE | 2020-06-08 22:36 | NUR ---
PT ASSESSMENT COMPLETED AND VSS. MEDS GIVEN ORDERED AND WELL TOLERATED. FALL PRECAUTIONS IN PLACE. PT THINKS THAT SHE MAY NOT NEED HER GABAPENTIN BECAUSE SHE NEVER HAD PAIN WITH HER NEUROPATHY. SHE ONLY HAD NUMBNESS. PT SLEEPING WELL. DENIES NEEDS. WILL CONTINUE TO MONITOR FREQUENTLY.
[2020-06-09 08:28] VITALS: BP 133/74
--- NOTE | 2020-06-09 14:13 | NUR ---
PT ASKED WHEN HER PEG CAN BE REMOVED, SHE WAS THINKING IT WAS CLOSE TO 8 WEEKS. NOTED THAT PEG INSERTION WAS DONE ON 05/12 PER MEDICAL RECORDS. THIS INFORMATION WAS GIVEN TO THE PATIENT, AND SHE WILL FOLLOW UP OUTPATIENT REGARDING REMOVAL.
--- NOTE | 2020-06-09 16:18 | NUR ---
PT ATTENDED ALL THERAPIES AND TOLERATED WELL WITH NO C/O SOA OR PAIN. PT NOTED THIS AFTERNOON THAT SHE WENT OUTSIDE WITH THERAPIST AND ENJOYED THIS.
--- NOTE | 2020-06-09 16:46 | NUR ---
EDUCATION PROVIDED REGARDING NEURONTIN ORDER CHANGES, AND PT STATED UNDERSTANDING.
[2020-06-09 19:35] VITALS: BP 142/73
--- NOTE | 2020-06-09 21:00 | NUR ---
DOING MOUTH CARE AND CHANGING INTO HOSPITAL GOWN WHILE UP IN WC. ASKING FOR MEDS AT 8 PM. VOIDING WELL. IS AWARE OF PEG TUBE. PLEASANT AND TOLERATING MEDS WITH WATER.
[2020-06-10 07:15] VITALS: BP 124/78
--- NOTE | 2020-06-10 12:34 | NUR ---
team meeting, reccommendation: she calling for her meds. has tube feed in place. will need 4ww. dc 06/13. HH ( pt, nursing). mod I in room then thur mod I possible on unit. she will need driving eval.
--- NOTE | 2020-06-10 15:06 | PLAN ---
[facility] [place] [address] REHAB UNIT PLAN OF CARE Name: HARLEY BARRERA Room #: 503-P ADM IN M.R.#: [id number] Admission: 06/02/20 Attend Phys: José Miguel Gonzalez MD Discharge: Date of : 48 Report #: [id number] THIS REPORT FOR: cc: Anjelica Lux DNP, Mary E. DNP Smithson, David G. MD ~ DATE OF SERVICE: 06/04/2020 PROGRESS NOTE AND OVERALL PLAN OF CARE SUBJECTIVE: The patient is seen on the inpatient rehabilitation diaz. She is in no distress. She is a very pleasant lady and is very motivated. Last recorded temperature 98.1, pulse 86, respirations 17, blood pressure 140/85. She is transferring with contact guard assistance and gait is up to 450 feet contact guard with a front-wheeled walker. She is going up and down 4 steps with mod assist. In occupational therapy, lower body dressing is min assist, upper body dressing is supervision. She has mild cognitive deficits with some moderate memory deficits. ASSESSMENT: 1. Critical illness myopathy. 2. Acute toxic encephalopathy. 3. [id number] pneumonia with respiratory failure. 4. Dysphagia. She still has the PEG tube in place, although she is on a diet. 5. Diabetes mellitus type 2. 6. Hypertension. 7. 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 PLAN: The overall plan of care is based on the preadmission screen and information garnered from therapy assessments. 1. Estimated length of stay is probably at least the next 7-10 days, possibly up to 14 days if warranted. 2. Medical prognosis is reasonably good. 3. Anticipated interventions includes the interdisciplinary acute inpatient rehabilitation program. 4. Anticipated functional outcomes would be for the patient to become modified independent with transfers, mobility and ADLs as well as to improve as far as her overall independence with cognition, so that she can return back to the home setting. 5. Discharge destination would be back to her condominium. She does have an involved son. 6. Expected therapy by discipline includes PT, OT and speech 1 hour per day each five days a week throughout the duration of the acute inpatient rehabilitation stay. [facility] [address] [place] [address] REHAB UNIT PLAN OF CARE Name: HARLEY BARRERA Room #: 503-P [facility] IN .R.#: [id number] Admission: 06/02/20 Attend Phys: José Miguel Gonzalez MD Discharge: Date of : 48 Report #: [id number] ADDENDUM: The patient's prognosis for significant practical improvement within a reasonable period of time appears good. Given the patient's complex medical condition and risk of further medical complication, rehabilitation services could not be safely provided at a lower level of care such as a [facility] facility. <ELECTRONICALLY SIGNED> By: José Miguel Gonzalez MD 06/10/20 1506 [id number] José Miguel Gonzalez MD /nt
--- NOTE | 2020-06-10 15:06 | H ---
[facility] [place] [address] HISTORY AND PHYSICAL Name: HARLEY BARRERA Room #: 503-P ADM IN M.R.#: [id number] Admission: 06/02/20 Attend Phys: José Miguel Gonzalez MD Discharge: Date of : 48 Report #: [id number] THIS REPORT FOR: cc: Anjelica Lux DNP, Mary E. DNP Smithson, David G. MD ~ DATE OF SERVICE: 06/02/2020 ADDENDUM HISTORY OF PRESENT ILLNESS: The patient has been admitted for acute in-hospital inpatient rehabilitation. Please see the full documentation as noted. 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 She gradually improved. No longer using the PEG tube, tolerating regular diet, on room air, very weak, and admitted on 06/02/2020 at [facility] for acute inpatient rehabilitation. MEDICATIONS: Please see the full medication listing. PAST MEDICAL HISTORY: Prior medical history is as noted. ALLERGIES: No known drug allergies. SOCIAL HISTORY: Lives at home alone in a condominium. She has worked as a nurse at [employer]. REVIEW OF SYSTEMS: As noted. PHYSICAL EXAMINATION: GENERAL: She is alert. No obvious distress. Question of a possible foot drop, although she has some tightness of her gastrocnemius. CHEST: Sounded clear to auscultation. CARDIOVASCULAR: Regular rate and rhythm. ABDOMEN: Bowel sounds positive, nontender. She is needing min assist with basic sit to stand transfers. Ambulating a short distance with a front-wheeled walker with min assist. Strength is at least a grade 3+/5 upper and lower extremities. ASSESSMENT: Critical illness myopathy, acute toxic encephalopathy, post COVID-19 pneumonia with respiratory failure, dysphagia, diabetes mellitus type 2, hypertension, possible GBS, status post IVIG. PLAN: She will be involved with the interdisciplinary acute inpatient rehabilitation program. Goal will be to maximize her functional independence, [address] [address] HISTORY AND PHYSICAL Name: HARLEY BARRERA Room #: 503-[facility] IN [facility].#: [id number] Admission: 06/02/20 Attend Phys: José Miguel Gonzalez MD Discharge: Date of : 48 Report #: [id number] so she can hopefully return back to her prior living situation. Please see the full admission documentation. Agree with the documentation as noted. <ELECTRONICALLY SIGNED> By: José Miguel Gonzalez MD 06/10/20 1506 [id number] José Miguel Gonzalez MD /[facility]
--- NOTE | 2020-06-10 16:05 | NUR ---
PT UP TO ALL THERAPIES AND TOLERATED WELL. PT ABLE TO DO COOKING TASK AND TOLERATED EXTENDED STANDING TIME WITH LATER C/O FATIGUE. PT EXCITED ABOUT DC PLAN FOR THIS WEEK.
--- NOTE | 2020-06-10 16:27 | NUR ---
FAXED REFERRAL TO [facility] SPOKE WITH RENZO IN ADM THEY CAN ACCEPT AT DC 4/2.
[2020-06-10 16:29] VITALS: BP 124/78
--- NOTE | 2020-06-10 19:00 | NUR ---
PT HAS REMEMBERED TO CALL APPROPRIATELY FOR ALL OF HER SCHEDULED MEDICATIONS TODAY.
[2020-06-10 19:26] VITALS: BP 133/61
--- NOTE | 2020-06-10 23:52 | NUR ---
CALLING FOR MEDS APPROPRIATELY AT 8 O'CLOCK, TAKING TRAZADONE AFTER PM ORAL CARE AND CHANGING INTO A HOSPITAL GOWN FOR THE NIGHT. PLEASANT AND LOOKING FORWARD TO GOING HOME TUESDAY. PEG TUBE REMAINS IN PLACE AND WILL TENTATIVELY BE REMOVED IN APPROX 5 WEEKS OUTPATIENT
--- NOTE | 2020-06-11 07:36 | NUR ---
ASSUMED CARE AT 0700. PATIENT IS ALERT AND ORIENTED X4. PATIENT HELM'S, BUSINESS EXCELLENCE MANAGER ARE EQUAL. LUNGS ARE CLEAR. ABD IS SOFT WITH BSX4. PATINET IS MOD/I IN ROOM WITH ROLING WALKER. UP TO THE BATHROOM INDEPENDENTLY TO VOID OTTO COLORED URINE. UP IN CHAIR FOR MEALS. FALL AND SAFETY PROTOCOLS IN PLACE. DENIES PAIN. CONTINUES TO PROGRESS TOWARDS D/C GOALS. WILL CONTINUE TO MONITER.
[2020-06-11 08:00] VITALS: BP 116/69
--- NOTE | 2020-06-11 11:49 | NUR ---
PATIENT CALLED FOR A.M. MEDS.
[2020-06-11 20:00] VITALS: BP 141/70
--- NOTE | 2020-06-11 23:27 | NUR ---
PT ASSESSMENT COMPLETED AND VSS. MEDS GIVEN ORDERED AND WELL TOLERATED. MOD I IN ROOM AND STEADY. PT DENIES PAIN/N/SOA. UP WITH STAFF WALKING HALLS DURING THE EVENING. PT WAS ABLE TO WALK AROUND THE UNIT 5 TIMES THIS EVENING USING HER WALKER. STEADY. PT VERY EXCITED ABOUT GOING HOME SOON AND TALKED A LOT ABOUT HOW MUCH SHE HAS IMPROVED. SLEEPING WELL. WILL CONTINUE TO MONITOR FREQUENTLY.
[2020-06-12 07:30] VITALS: BP 139/78
[2020-06-12 08:00] VITALS: BP 126/74
[2020-06-12] MEDS ORDERED: VITAMIN D325 MC1 PO (08:40)
[2020-06-12] MEDS ORDERED: ZINC SULFATE50 MG PO (08:40)
[2020-06-12] MEDS ORDERED: VITCB500GO PO (08:40)
[2020-06-12] MEDS ORDERED: UNICOMPLEX M TA1 TA1 PO (08:40)
[2020-06-12] MEDS ORDERED: BAYER CHEWABLE81 MG PO (08:40)
--- NOTE | 2020-06-12 16:11 | NUR ---
PT A&OX4, VSS, DENIES PAIN. PATIENT ROOM AIR AND NO SIGNS OF DISTRESS. FAMILY AT BEDSIDE. ACCU CHECK BEFORE BREAKFAST. PATIENT REQUESTED MORNING MEDICATION APART OF HER THERAPY ASSIGNMENT. PATIENT TOLERATING DIET. WILL CONTINUE TO MONITOR.
[2020-06-12 18:58] VITALS: BP 139/79
--- NOTE | 2020-06-13 00:57 | NUR ---
CALLED FOR EVENING MEDS, UP WITH WALKER TO BATHROOM FOR ORAL CARE AND TO CHANGE INTO HOSPITAL GOWN FOR THE NIGHT. LOOKING FORWARD TO GOING HOME, GLAD TO HAVE LOVENOX FINISHED AND TAKING ASA 81 MG BLOOD THINNER SHE WILL AT HOME AND FOR BEING WEANED OFF GABAPENTIN.
[2020-06-13 07:15] VITALS: BP 121/75
[2020-06-13 08:19] VITALS: BP 121/75
--- NOTE | 2020-06-13 10:05 | NUR ---
Received awake on bed. Due medications given as prescribed, able to swallow meds w/o difficulty. On room air, saturating at 99%. Vital signs stable. On MS, not on telemetry; no complains and signs of chest pain, crushing sensation and heaviness. Assisted in ADLs. On regular diet- tolerating well; no nausea, no vomiting and no abdominal pain noted. On blood sugar monitoring- once a day; taken and recorded. Continetnt of bowel and bladder, able to go to the toilet with assistance. No IV noted. For discharge today- a/w physician's rounds and orders. Able to walk around the unit with walker and gait belt; on standby assist. With PEG tube in place- not currently being used for meds/nutrition; for removal after 2 weeks as outpatient. To continue monitoring patient. Pt seen and examined by [employer]; discharge orders made- pt informed and aware.
== END 2020-06-13 12:21 | disposition home health service (06) | DRG 91 ==
PROVIDERS: Nurse Practitioner Family; ADMIT Physical Medicine & Rehabilitation; ATTEND Physical Medicine & Rehabilitation
DX: G72.81 Critical illness myopathy (principal); G92 Toxic encephalopathy; J96.01 Acute respiratory failure with hypoxia; G61.0 Guillain-Barre syndrome; I10 Essential (primary) hypertension; E11.9 Type 2 diabetes mellitus without complications; R13.10 Dysphagia, unspecified; Z86.16 Personal history of COVID-19
CPT/HCPCS: 10112

== ENCOUNTER → 2021-02-23 | Outpatient (CLI) | payer OTHER ==
[~2021-02-23] MED LIST changes: +BAYER CHEWABLE81 MG PO; +DESYREL150 MG PO; +GLIMEPIRIDE1 MG PO; +REMEDY CALAZIM113 G2 TOP; +UNICOMPLEX M TA1 TA1 PO; +VITAMIN D325 MC1 PO; +VITCB500GO PO; +ZINC SULFATE50 MG PO
== END ==
LOC: BC 08:54
PROVIDERS: ATTEND Family Medicine
DX: Z12.31 Encounter for screening mammogram for malignant neoplasm of breast (principal); N64.89 Other specified disorders of breast